=== PATIENT | male | born 1955 | race Caucasian/White ===

== ENCOUNTER → 2020-10-19 | Outpatient (CLI) | payer BC | END | disposition home or self-care (01) | LOC: LABWHC1 15:39 | PROVIDERS: ATTEND Urology | DX: R97.20 Elevated prostate specific antigen [PSA] (principal) | CPT/HCPCS: 36415; 84153 ==

== ENCOUNTER → 2020-11-14 | Outpatient (CLI) | payer BC ==
[2020-11-14 10:31] LABS: African American GFR (CKD) >90 (>60 ml/min/1.73 sqM); Blood Urea Nitrogen 14 mg/dL (9-20); Non-African American GFR(CKD) >90 (>60 ml/min/1.73 sqM)
--- NOTE | 2020-11-14 12:03 | CT ---
EXAMINATION TYPE: CT abdomen pelvis w con DATE OF EXAM: 11/14/2020 COMPARISON: None HISTORY: Prostate CA CT DLP: 1532.0 mGycm CONTRAST: CT scan of the abdomen and pelvis is performed with Oral Contrast and with IV Contrast, patient injec pawel with 100 mL of Isovue 300. FINDINGS: LUNG BASES-: No visible nodule. No infiltrate. LIVER/GB: No calcified gallstones. No space occupying hepatic lesion. Biliary tree is of normal ca liber. Mild hepatic steatosis. PANCREAS: No inflammation. No distinct mass. SPLEEN: No splenic enlargement. No lesion seen. ADRENALS: No nodule. No thickening. KIDNEYS/BLADDER: No hydronephrosis. No nephrolithiasis. Right renal cyst measures 3 cm. No solid re nal mass is detected. Urinary bladder grossly unremarkable. BOWEL: Normal appendix. Normal bowel caliber. No inflammation. GENITAL ORGANS: The prostate gland is enlarged. Periprosthetic fat planes are intact. LYMPH NODES: No greater than 1cm abdominal or pelvic lymph nodes are appreciated. AORTA: No significant abnormality. OSSEOUS STRUCTURES: No significant abnormality is seen. OTHER: No significant additional abnormality is seen. IMPRESSION: 1. Prostate gland enlargement. No CT evidence to suggest metastatic disease.
--- NOTE | 2020-11-14 15:09 | NM ---
EXAMINATION TYPE: NM bone scan whole body DATE OF EXAM: 11/14/2020 COMPARISON: NONE HISTORY: Prostate cancer Delayed whole-body scanning was performed following the injection of 23.6 mCi Tc 99m MDP. Images wer e acquired 3 hours post injection. FINDINGS: There is a punctate area of increased radiotracer accumulation within the left knee may be some degen erative change. Mild diffuse increase uptake is at joint spaces including bilateral levels bilateral wrists bilateral knees and bilateral ankles likely related to degenerative changes. No suspicious focal hyperintensities evident. No suspicious photopenic defects are evident. Note is m carrillo of Valentin rods within the upper thoracic region. IMPRESSION: 1. No suspicious changes to suggest metastatic prostate cancer.
== END | disposition home or self-care (01) ==
LOC: RADNMMAIN 09:22
PROVIDERS: ATTEND Urology
DX: N40.0 Benign prostatic hyperplasia without lower urinary tract symptoms (principal); C61 Malignant neoplasm of prostate
CPT/HCPCS: 82565; 84520; 74177; 36415; 78306; A9503; Q9967 ×2

== ENCOUNTER → 2020-12-19 | Outpatient (CLI) | payer BC ==
[2020-12-19 07:59] LABS: Basophils % (A) 0 %; Eosinophils # (A) 0.1 k/uL (0-0.7); Eosinophils % (A) 2 %; HCT 42.3 % (39.0-53.0); HGB 14.3 gm/dL (13.0-17.5); Lymphocytes # (A) 1.2 k/uL (1.0-4.8); Lymphocytes % (A) 28 %; MCH 30.4 pg (25.0-35.0); MCHC 33.9 g/dL (31.0-37.0); MCV 89.7 fL (80.0-100.0); Mean Platelet Volume 7.4; Monocytes # (A) 0.3 k/uL (0-1.0); Monocytes % (A) 7 %; Neutrophils # (A) 2.5 k/uL (1.3-7.7); Neutrophils % (A) 61 %; Platelet Count 178 k/uL (150-450); RBC 4.72 m/uL (4.30-5.90); RDW 13.1 % (11.5-15.5); WBC 4.1 k/uL (3.8-10.6)
[2020-12-19 08:28] LABS: African American GFR (CKD) >90 (>60 ml/min/1.73 sqM); Anion Gap 5 mmol/L; Blood Urea Nitrogen 13 mg/dL (9-20); Calcium 9.9 mg/dL (8.4-10.2); Carbon Dioxide 27 mmol/L (22-30); Chloride 108 mmol/L (98-107); Glucose 109 mg/dL (74-99); Non-African American GFR(CKD) >90 (>60 ml/min/1.73 sqM); Potassium 4.4 mmol/L (3.5-5.1); Sodium 140 mmol/L (137-145)
--- NOTE | 2020-12-19 09:59 | MR ---
EXAMINATION TYPE: MR Prostate wo/w con DATE OF EXAM: 12/19/2020 COMPARISON: CT abdomen and pelvis November 14, 2020 IMAGE QUALITY: . INDICATION: Prostate CA, Positive Biopsy, high PSA level PSA: 25.0 ng/ml on October 10, 2020 Recent Biopsy and Date: October 30, 2020 Pathology Report (If Applicable): Right base high-grade intraepithelial neoplasm. Left lateral base a denocarcinoma [place] score 4+3 = 7 103 core fragments 2 mm of core tissue 22% of tissue volume, left base adenocarcinoma Mansi score 4+4 = 8 1 mm core tissue 20% tissue volume. Lateral mid zone adeno carcinoma Mansi grade 4+4 = 8 5 mm core tissue 56% tissue volume, left mid adenocarcinoma [place]ome g rade 4+4 = 8 5 mm of core tissue 45% or volume. Lateral apex adenocarcinoma Mansi grade 4+4 = 8 1 m m core tissue 13% for volume TECHNIQUE: Examination was performed using a 3T MRI without an endorectal coil. Multiparametric imaging was perf ormed with T2 mutliplanar sequences, axial diffusion weighted imaging and dynamic contrast enhanced i maging, utilizing 10 mL intravenous Gadavist gadolinium contrast. FINDINGS: There is no clinically significant cancer identified. PROSTATE VOLUME: 4.8 cm SI x 4.7 cm AP x 5.8 cm LR Vol= 68.5 cc Calculated PSA equals 8.22 PSA DENSITY: 0.36 ng/ml/cc abnormal T1 weighted images show scattered areas of hyperintensity consistent with postbiopsy hemorrhage corre lating with history of recent sampling. Suspicious peripheral zone 3.5 x 2.3 x 2.0 cm lesion left mid level images through 12 through 228 ser ies 606 and coronal image 13 series 501 showing moderate hypointensity with mild hyperintensity on di ffusion-weighted images, there is posterior extraprostatic extension outside the capsule into the lef t perirectal space seen best on axial series 4 1 image 22 abutting the outer margin of the rectum. P IRADS 5 LESION. The transitional zone shows suspicious 1.3 cm hypointense nodule in the base just right of midline co mark image 8 corresponding to axial image 26 on T2-weighted images. PIRADS 2 LESION There are smaller suspicious T2 hypointense lesions in the lateral aspect of the base seen best on co mark image 10, right is more obscured margin measuring 1.4 cm long axis. Slight hypointensity and AD C mapping but no increased signal on diffusion-weighted images. PIRADS 3 LESION Bladder poorly distended with mild wall thickening present in part to poor distention. Seminal vesicl es appear within normal limits. There are suspicious adjacent pelvic lymph nodes. There especially when correlating with CT axial image 75 superior to level prostate gland suspicious bilateral subcentimeter adenopathy is present. Adjacent osseous structures are intact. No concerning pelvic fluid collection. No suspicious bowel di latation. IMPRESSION: Enlarged prostate gland with markedly suspicious inferior left peripheral zone appears ex tracapsular extension. Suspicious adenopathy identified superiorly seen better on recent CT in retros pect. A focus of clinically significant cancer is identified. Highest Assessment Category: 5 MRI Stage: T3a N1 M0 based on review of pelvic images. False negative rates for MRI range from 5-20% depending on risk profile. Assessment Categories: 1 ? Very low (clinically significant cancer is highly unlikely to be present) 2 ? Low (clinically significant cancer is unlikely to be present) 3 ? Intermediate (the presence of clinically significant cancer is equivocal) 4 ? High (clinically significant cancer is likely to be present) 5 ? Very high (clinically significant cancer is highly likely to be present)
== END | disposition home or self-care (01) ==
LOC: RADMRIMAIN 06:02
PROVIDERS: ATTEND Urology
DX: N40.0 Benign prostatic hyperplasia without lower urinary tract symptoms (principal); Z01.818 Encounter for other preprocedural examination; C61 Malignant neoplasm of prostate; R53.83 Other fatigue
CPT/HCPCS: 80048; 85025; 72197; 36415; A9585

== ENCOUNTER 2020-12-26 09:58 | Observation (INO) | payer BC ==
[2020-12-21 10:32] VITALS: BMI 30.9
[~2020-12-26 09:58] MED LIST: DEXAMETHASONE SOD PHOSPHATE 4 MG/ML 1 ML VIAL IV ONE; HEPARIN SODIUM,PORCINE/PF 5,000 UNIT/0.5 ML SYRINGE SQ PRN; HYDROmorphone 0.5 MG/0.5 ML SYRINGE IVP PRN; LIDOCAINE 1% (10MG/ML) FOR IV START INTRADERMA PRN; ONDANSETRON 4 MG/2 ML VIAL IVP ONE; SCOPOLAMINE 1.5MG/72HR PATCH TRANSDERM ONE
[2020-12-26] MEDS: LACTATED RINGERS 1,000 ML IV SCH ×2 (10:52→10:53)
[2020-12-26] MEDS ORDERED: MIDAZOLAM 2 MG/2 ML VIAL IV ONE (11:24)
[2020-12-26] MEDS ORDERED: NEOSTIGMINE 1 MG/ML 10 ML VIAL ONE (12:31)
[2020-12-26] MEDS ORDERED: KETAMINE 10 MG/ML 20 ML VIAL ONE (12:31)
[2020-12-26] MEDS ORDERED: HYDROmorphone (PF) 1 MG/ML ONE (12:31)
[2020-12-26] MEDS ORDERED: ROPIVACAINE 5 MG/ML 30 ML VIAL ONE (12:31)
[2020-12-26] MEDS ORDERED: ePHEDrine SULFATE/0.9% NACL/PF 50 MG/5 ML SYRINGE IV ONE (12:31)
[2020-12-26] MEDS ORDERED: ROCURONIUM 10 MG/ML (5 ML VIAL) IV ONE (12:31)
[2020-12-26] MEDS ORDERED: GLYCOPYRROLATE 0.2 MG/ML 2 ML VIAL ONE (12:31)
[2020-12-26] MEDS ORDERED: PROPOFOL 10 MG/ML 20 ML VIAL IV ONE (12:31)
[2020-12-26] MEDS ORDERED: KETOROLAC 15 MG/ML 1 ML VIAL ONE (12:31)
[2020-12-26] MEDS ORDERED: LIDOCAINE 1% INJ 10MG/ML (20 ML MDV) ONE (12:31)
[2020-12-26] MEDS ORDERED: ONDANSETRON 4 MG/2 ML VIAL ONE (12:31)
[2020-12-26] MEDS ORDERED: LIDOCAINE 1%-EPI 1:100,000 20 ML VIAL ONE (12:31)
[2020-12-26] MEDS ORDERED: SUCCINYLCHOLINE CHLORIDE VIAL 200 MG/10 ML VIAL IV ONE (12:31)
[2020-12-26] MEDS ORDERED: MIDAZOLAM 2 MG/2 ML VIAL ONE (12:31)
[2020-12-26] MEDS ORDERED: fentaNYL (PF) 50 MCG/ML 2 ML AMP ONE (12:31)
--- NOTE | 2020-12-26 12:35 | P.GSHP ---
History of Present Illness H&P Date: 12/25/20 Chief Complaint: Prostate Cancer The patient is a 65-year-old white male with recent PSA levels of 25.0 and 19.6. LESLIE reveals a left-sided prostate nodule. Ultrasound revealed a prostate volume of 53 mL, with a left-sided hypoechoic lesion. 5 of 12 biopsies showed Mansi 7/8 adenocarcinoma, all on the left side. CT scan and bone scan showed no metastases. Alternative treatment options were reviewed, and he has elected to undergo a robotic-assisted laparoscopic prostatectomy (RALP) with bilateral pelvic lymphadenectomy. An MRI was obtained, revealing a PIRADS 5 lesion on the left and PIRADS 2 and 3 lesions on the right. The MRI also suggests the presence of adenopathy (subcentimeter), also seen on the CT scan in retrospect. - Genitourinary (Male) Genitourinary: Reports nocturia Past Medical History Past Medical History: Cancer, Eye Disorder, Hypertension Additional Past Medical History / Comment(s): Current Prostate Cancer. Glaucoma. Hx kidney stones. History of Any Multi-Drug Resistant Organisms: None Reported Additional Past Surgical History / Comment(s): Varicose vein surgery, Parathyroid surgery, bilateral Cataract surgery with lens implants. Past Anesthesia/Blood Transfusion Reactions: No Reported Reaction Past Psychological History: No Psychological Hx Reported Smoking Status: Never smoker Past Alcohol Use History: None Reported Past Drug Use History: None Reported - Past Family History Mother Family Medical History: Cancer Additional Family Medical History / Comment(s): Melanoma. Medications and Allergies Home Medications Medication Instructions Recorded Confirmed Type lisinopriL 20 mg PO QAM 12/21/20 12/26/20 History Allergies Allergy/AdvReac Type Severity Reaction Status Date / Time No Known Allergies Allergy Verified 12/26/20 10:24 Surgical - Exam - General well developed, well nourished, no distress - Respiratory normal respiratory effort, clear to auscultation - Cardiovascular Rhythm: regular Abnormal Heart Sounds: no systolic murmur, no diastolic murmur, no rub, no S3 Gallop, no S4 Gallop, no click, no other - Abdomen Abdomen: soft, non tender, no guarding, no rigid, no rebound Hernia: none - Genitourinary normal penis with no external lesions, testicles non-tender - Psychiatric oriented to time, oriented to person, oriented to place, speech is normal, memory intact Results - Imaging CT scan - pelvis: report reviewed, image reviewed Assessment and Plan (1) Malignant neoplasm of prostate Current Visit: No Status: Acute Code(s): C61 - MALIGNANT NEOPLASM OF PROSTATE SNOMED Code(s): 376985105 Plan: Robotic-assisted laparoscopic prostatectomy (RALP) with bilateral pelvic lymphadenectomy. The procedure has been reviewed in detail with the patient and his . The anticipated perioperative course was discussed. Also discussed were potential risks, which include anesthesia, bleeding, infection, bowel injury, lymphocele, urinary leak, and vesical neck contracture. The issues of postoperative urinary incontinence and erectile dysfunction have been discussed with the patient in great detail. If bulky positive lymph nodes are encountered, consideration would be given to aborting the planned prostatectomy.
[2020-12-26] MEDS ORDERED: BUPIVACAINE (PF) 0.25% 30 ML VIAL SQ ONE ×2 (13:00)
[2020-12-26] MEDS ORDERED: LACTATED RINGERS 1,000 ML IV ONE (14:33)
[2020-12-26] MEDS ORDERED: KETOROLAC 15 MG/ML 1 ML VIAL IVP PRN (17:54)
[2020-12-26] MEDS ORDERED: ONDANSETRON 4 MG/2 ML VIAL IVP PRN (17:54)
--- NOTE | 2020-12-26 18:02 | P.OP ---
Date of Procedure: 12/26/20 Preoperative Diagnosis: Adenocarcinoma the prostate Postoperative Diagnosis: Same Procedure(s) Performed: Robotic-assisted laparoscopic prostatectomy (RALP) with bilateral pelvic lymphadenectomy Anesthesia: ANNA Surgeon: Nadir Geller Schedule Planning Manager #1: Taras Fountain Estimated Blood Loss (ml): 250 IV fluids (ml): 1,800 Pathology: other (Prostate, seminal vesicles, bilateral pelvic lymph nodes) Condition: stable Disposition: PACU Indications for Procedure: The patient is a 65-year-old white male with recent PSA levels of 25.0 and 19.6. LESLIE reveals a left-sided prostate nodule. Ultrasound revealed a prostate volume of 53 mL, with a left-sided hypoechoic lesion. 5 of 12 biopsies showed [place] 7/8 adenocarcinoma, all on the left side. CT scan and bone scan showed no metastases. Alternative treatment options were reviewed, and he has elected to undergo a robotic-assisted laparoscopic prostatectomy (RALP) with bilateral pelvic lymphadenectomy. An MRI was obtained, revealing a PIRADS 5 lesion on the left and PIRADS 2 and 3 lesions on the right. The MRI also suggests the presence of adenopathy (subcentimeter), also seen on the CT scan in retrospect. Operative Findings: Nodular left lateral prostatic lobe. Description of Procedure: The patient was taken in the operating room and placed in the dorsal lithotomy position, with his legs supported in Thanh stirrups. He was carefully positioned on a beanbag for stability. The abdomen and external genitalia were prepped and draped sterilely. A Spaulding catheter was inserted. The Veress needle was passed through the anterior abdominal wall immediately cephalad to the umbilicus, and insufflation was performed to a pressure of 20 mm Hg. Once insufflation was performed, the Veress needle was removed and a supraumbilical incision was made, through which a 12 mm camera port was placed. Under camera guidance, 3 8 mm robotic ports were placed, 2 on the left and one on the right. An additional 12 mm port was placed on the right lateral side for use as an media center assistant port. A 5 mm port was placed to the right of the camera port for suction. The patient was placed in Trendelenburg position, and docking was then performed to the britebill system utilizing a 4-arm approach. The abdomen was examined. The sigmoid colon was mobilized out of the pelvis. The peritoneum was incised lateral to the medial umbilical ligaments bilaterally, exposing the pubis. The peritoneum was then incised across the midline, allowing the bladder flap to be taken down. The endopelvic fascia was opened bilaterally, and muscular attachments from the urogenital diaphragm were swept away from the prostate. Bilateral pelvic lymphadenectomies were performed in the standard fashion. The peritoneal incisions were extended in a cephalad direction, and the vas deferens were divided bilaterally. Margins of dissection were the bifurcation of the iliac vessels proximally, the circumflex iliac vein distally, the external iliac artery laterally, and the obturator nerve medially. A standard lymphadenectomy was performed on the right side, but an extended lymphadenectomy was performed on the left side. A combination of sharp and blunt dissection was used. Care was taken to avoid any neurovascular injury, and the use of monopolar electrocautery was avoided immediately adjacent to neurovascular structures. The lymphatic package was clipped distally. No enlarged lymph nodes were encountered. There were no complications. The vesical neck was incised transversely, down to the lumen. The Spaulding catheter was brought out through the anterior vesical neck incision and was used for traction. The posterior aspect of the vesical neck was incised, such that the full-thickness of the vesical neck was divided. The anterior layer of the Denonvilliers fascia was incised, exposing the vas deferens. Each were isolated and divided. Next, each of the seminal vesicles were dissected away from adjacent tissues, and vascular attachments were cauterized and divided. The posterior leaf of Denonvilliers fascia was incised transversely, allowing entry into the plane between the prostate and rectum. With lateral spreading, this plane was developed down to the apex. This exposed the lateral vascular pedicles bilaterally. These were clipped and divided in an antegrade fashion, down to the apex. The use of electrocautery was avoided on the right to prevent thermal damage to the nerves. The plane of dissection on the right allowed for partial nerve sparing. Wide excision of the neurovascular bundle was performed on the left. The left prostatic lobe was nodular, but was not adherent to any adjacent structures. The remaining apical attachments were swept away from the prostate. The dorsal venous complex was incised, as well as periurethral tissue. At this point, only the urethra remained intact. This was transected immediately distal to the prostatic apex using cold scissors. The specimen was placed within a specimen bag. The dorsal venous complex was sutured using a V-Loc suture in a running fashion. A second V-Loc suture was then used to place the Eduardo stitch, incorporating the rhabdosphincter and the edge of Denonvilliers fascia. This allowed the bladder to be taken down to the urethra, leaving the vesical neck immediately adjacent to the urethra. The vesicourethral anastomosis was then performed using a V-Loc suture in a running fashion. After completing the anastomosis, an 18-Ukrainian Spaulding catheter was placed and approximately 150 mL of 0.9 normal saline were instilled into the bladder. No extravasation of irrigant from the vesicourethral anastomosis was noted. A small amount of oozing was noted from the vascular pedicles, so Surgicel was placed bilaterally. Tisseel was sprayed into the pelvis over the vascular pedicles, dorsal vein, and vesicourethral anastomosis. The patient was returned to the supine position. Undocking was performed, and the specimen bag sutures were passed through the camera port. After removing all the ports and allowing all of the CO2 to be released from the peritoneal cavity, the camera port incision was enlarged to allow removal of the surgical specimen. The fascia of this incision was then closed using 0-PDS suture in a running fashion. Each of the skin incisions were then closed using 4-0 Monocryl suture in a subcuticular fashion. Marcaine was injected at each of the incision sites. Dermabond was applied to each incision. The Spaulding catheter was connected to gravity drainage. All sponge and needle counts were correct. The patient tolerated the procedure well was taken to the recovery room in stable condition.
[2020-12-26] MEDS: DEXTROSE 5%-0.45% NACL 1,000 ML IV SCH (19:47)
[2020-12-26] MEDS: HEPARIN SODIUM,PORCINE/PF 5,000 UNIT/0.5 ML SYRINGE SQ SCH (21:15)
[2020-12-27] MEDS: DEXTROSE 5%-0.45% NACL 1,000 ML IV SCH ×2 (02:51→10:29)
[2020-12-27] MEDS: HYDROmorphone 1 MG/ML 1 ML SYRINGE IVP PRN ×2 (05:51→08:03)
[2020-12-27 06:22] VITALS: RESP 18
[2020-12-27 06:36] LABS: HCT 38.2 % (39.0-53.0); HGB 13.3 gm/dL (13.0-17.5); MCHC 34.7 g/dL (31.0-37.0); MCV 89.4 fL (80.0-100.0); Mean Platelet Volume 7.3; Platelet Count 167 k/uL (150-450); RBC 4.27 m/uL (4.30-5.90); RDW 12.9 % (11.5-15.5); WBC 8.4 k/uL (3.8-10.6)
[2020-12-27] MEDS: HEPARIN SODIUM,PORCINE/PF 5,000 UNIT/0.5 ML SYRINGE SQ SCH (08:03)
[2020-12-27] MEDS ORDERED: HYDROcodone/APAP 5-325MG 1 EACH TAB PO PRN ×2 (10:46)
[2020-12-27 12:22] VITALS: BP 146/86; PULSE 58; TEMP 98.1
--- NOTE | 2020-12-27 12:43 | P.DS ---
Providers Date of admission: 12/27/20 11:03 Expected date of discharge: 12/27/20 Attending physician: Nadir Geller Primary care physician: Cheryle Owusu - Discharge Diagnosis(es) (1) Malignant neoplasm of prostate Current Visit: No Status: Acute Hospital Course: Patient is a 65-year-old white male who underwent an uncomplicated RALP on the day of admission. The perioperative course was unremarkable. He remained afebrile with stable vital signs. On the first postoperative day, he denied nausea and reported only incisional discomfort. He tolerated breakfast in small amounts. The abdomen was soft and nondistended. The incisions were clean and dry. The Spaulding catheter was draining clear yellow urine. The hemoglobin level is stable. Procedures: Robotic-assisted laparoscopic prostatectomy (RALP) with bilateral pelvic lymphadenectomy on 12/26/2020. Patient Condition at Discharge: Good Plan - Discharge Summary Discharge Rx Participant: No New Discharge Prescriptions: New Ketorolac [Toradol] 10 mg PO Q6HR PRN #12 tab PRN Reason: Pain Ciprofloxacin HCl [Cipro] 250 mg PO Q12HR #6 tablet HYDROcodone/APAP 5-325MG [[place] 5-325] 1 - 2 tab PO Q4HR PRN #6 tab PRN Reason: Pain No Action lisinopriL 20 mg PO QAM Discharge Medication List lisinopriL 20 mg PO QAM 12/21/20 [History] Ciprofloxacin HCl [Cipro] 250 mg PO Q12HR #6 tablet 12/27/20 [Rx] HYDROcodone/APAP 5-325MG [[place] 5-325] 1 - 2 tab PO Q4HR PRN #6 tab 12/27/20 [Rx] Ketorolac [Toradol] 10 mg PO Q6HR PRN #12 tab 12/27/20 [Rx] Follow up Appointment(s)/Referral(s): Nadir Geller MD [STAFF PHYSICIAN] - 01/04/21 Activity/Diet/Wound Care/Special Instructions: Discharge home with Spaulding catheter. Instruct patient to use overnight drainage bag as well as urinary leg bag. Okay to shower. Diet as tolerated. No lifting, driving, or strenuous activity. Reassure patient that abdominal wall ecchymosis and penoscrotal swelling are normal. Instruct patient to begin taking antibiotics one day prior to Spaulding catheter removal. Discharge Disposition: HOME SELF-CARE
--- NOTE | 2020-12-27 18:33 | P.ANPRN ---
Procedure Note - Anesthesia - Nerve Block Performed Bilateral Erector Spinae Single Time Out Performed: Yes Date of Procedure: 12/26/20 Procedure Start Time: :23 Procedure Stop Time: :34 Location of Patient: PreOp Indication: Acute Post-Operative Pain, Requested by Surgeon Sedation Type: Sedate with meaningful contact maintained Preparation: Sterile Prep Position: Prone Needle Types: Pajunk Needle Gauge: 21 Ultrasound used to visualize needle placement: Yes Ultrasound used to observe medication spread: Yes Blood Aspirated: No Pain Paresthesia on Injection Noted: No Resistance on Injection: Normal Image Stored and Saved: Yes Events: Uneventful and Well Tolerated (ropi .5% 15cc plus xylo 1% with epi 15cc at l3 bilaterally)
== END 2020-12-27 15:10 | disposition home or self-care (01) ==
LOC: OR 09:58 → 5NMEDONC 18:01 → OR 12-27 11:03
PROVIDERS: ADMIT Urology; ATTEND Urology
DX: C61 Malignant neoplasm of prostate (principal); R35.1 Nocturia; I10 Essential (primary) hypertension; G47.33 Obstructive sleep apnea (adult) (pediatric); E07.9 Disorder of thyroid, unspecified; H40.9 Unspecified glaucoma; Z79.899 Other long term (current) drug therapy; Z20.822 Contact with and (suspected) exposure to COVID-19; Z98.41 Cataract extraction status, right eye; Z96.1 Presence of intraocular lens; Z98.42 Cataract extraction status, left eye; Z87.442 Personal history of urinary calculi; Z80.8 Family history of malignant neoplasm of other organs or systems
CPT/HCPCS: 64999; 76942; 86900; 86901; 85027; 86850; 87635; 55866; 38571; G0378; C1762; J2250; J1100; J0690; J2405 ×2; J1170; J1885; J1644 ×2

== ENCOUNTER → 2021-01-28 | Outpatient (CLI) | payer BC | END | disposition home or self-care (01) | LOC: LABWHC1 16:16 | PROVIDERS: ATTEND Urology | DX: C61 Malignant neoplasm of prostate (principal) | CPT/HCPCS: 36415; 84153 ==

== ENCOUNTER → 2021-03-19 | Outpatient (CLI) | payer BC ==
[2021-03-19 10:36] LABS: African American GFR (CKD) >90 (>60 ml/min/1.73 sqM); Blood Urea Nitrogen 15 mg/dL (9-20); Non-African American GFR(CKD) >90 (>60 ml/min/1.73 sqM)
--- NOTE | 2021-03-19 13:59 | CT ---
EXAMINATION TYPE: CT pelvis w con DATE OF EXAM: 03/19/2021 COMPARISON: 11/14/2020, PET/CT report dated 03/05/2021 HISTORY: Prostate cancer TECHNIQUE: Pelvis is examined at 5 mm thick sections. Constructed images the coronal and sagittal priscilla ne reviewed. This exam is compared to 11/14/2020. Study is performed without intravenous and oral cont rast. FINDINGS: Couple of punctate sclerotic areas are within the femoral heads most likely are bone island s. No acute fractures are evident. Sacroiliac joint degenerative changes and vacuum phenomenon is pre sent. Facet changes are within the L5-S1 level. No suspicious lytic or sclerotic lesions are evident. There is a cyst in the mid posterior right kidney measuring 3.0 cm and 9 Hounsfield units. Kidneys ot herwise appear unremarkable. Vascular calcifications within the abdominal aorta. Inferior vena cava i s normal. Loops of bowel without oral contrast are unremarkable. Diverticular changes are within the sigmoid colon. Urinary bladder is decompressed. There may be interval resection of the prostate. Prev ious enlarged prostate is not identified. No suspicious adenopathy is identified at the location described in the PET CT report. No suspicious lymph node at the aortic bifurcation or left iliac chain is identified by CT criteria. IMPRESSION: 1. Findings compatible with prior prostatectomy. 3. No suspicious change to suggest metastatic disease. No suspicious adenopathy or bone lesions are e vident.
== END | disposition home or self-care (01) ==
LOC: RADCTMAIN 09:36
PROVIDERS: ATTEND Urology
DX: C61 Malignant neoplasm of prostate (principal)
CPT/HCPCS: 82565; 84520; 72193; 36415; Q9967

== ENCOUNTER 2021-04-16 10:41 | Day surgery (SDC) | payer BC ==
[2021-04-11 11:51] VITALS: BMI 29.8
[2021-04-16] MEDS ORDERED: LACTATED RINGERS 1,000 ML IV ONE (11:02)
[2021-04-16 11:16] VITALS: RESP 18; TEMP 97.8
[2021-04-16] MEDS ORDERED: LIDOCAINE 1% INJ 10MG/ML (20 ML MDV) ONE (11:50)
[2021-04-16] MEDS ORDERED: PROPOFOL 10 MG/ML 20 ML VIAL IV ONE (11:50)
--- NOTE | 2021-04-16 11:55 | P.GSHP ---
History of Present Illness H&P Date: 04/16/21 Chief Complaint: Colon cancer screening 66-year-old male here today for colonoscopy. Last colonoscopy 3-5 years ago. Personal history of colon polyps. No bowel complaints. Recent diagnosis of prostate cancer. Past Medical History Past Medical History: Cancer, Eye Disorder, Hypertension Additional Past Medical History / Comment(s): Current Prostate Cancer. Glaucoma. Hx kidney stones, hx. colon polyp, urinary incontinence related to recent prostate surg. History of Any Multi-Drug Resistant Organisms: None Reported Past Surgical History: Back Surgery, Orthopedic Surgery, Prostate Surgery Additional Past Surgical History / Comment(s): Varicose vein surgery, Parathyroid surgery, bilateral Cataract surgery with lens implants. carpal tunnel surgery B/L; arthroscopies knees, robotic prostatectomy & lymph nodes removed 12-26-20 Past Anesthesia/Blood Transfusion Reactions: No Reported Reaction Smoking Status: Never smoker - Past Family History Mother Family Medical History: Cancer Additional Family Medical History / Comment(s): Melanoma. Medications and Allergies Home Medications Medication Instructions Recorded Confirmed Type lisinopriL 20 mg PO QAM 12/21/20 04/11/21 History Allergies Allergy/AdvReac Type Severity Reaction Status Date / Time No Known Allergies Allergy Verified 04/11/21 11:54 Surgical - Exam Vital Signs Temp Pulse Resp BP Pulse Ox 97.8 F 78 18 161/88 97 04/16/21 11:01 04/16/21 11:01 04/16/21 11:01 04/16/21 11:01 04/16/21 11:01 Physical exam: General: Well-developed, well-nourished HEENT: Normocephalic, sclerae nonicteric Abdomen: Nontender, nondistended Extremities: No edema Neuro: Alert and oriented Assessment and Plan (1) Colon cancer screening Narrative/Plan: Will proceed with colonoscopy at this time Current Visit: Yes Status: Acute Code(s): Z12.11 - ENCOUNTER FOR SCREENING FOR MALIGNANT NEOPLASM OF COLON SNOMED Code(s): 083120459
--- NOTE | 2021-04-16 12:09 | P.PCN ---
Date of Procedure: 04/16/21 Procedure(s) Performed: PREOPERATIVE DIAGNOSIS: Colon cancer screening, history of polyps POSTOPERATIVE DIAGNOSIS: Diverticulosis PROCEDURE: Colonoscopy ANESTHESIA: MAC SURGEON: Alli Owusu M.D. SPECIMENS: None ENDOSCOPIC PROCEDURE: The patient was placed on the endoscopy table in the left decubitus position. The Olympus colonoscope was inserted into the anus and passed under direct visualization to the base of the cecum. The appendiceal orifice was visualized. From that point the scope was slowly withdrawn inspecting all surfaces carefully. There were no neoplastic inflammatory or polypoid lesions throughout the cecum, ascending, transverse, descending, sigmoid and rectum. There was mild left-sided diverticulosis noted. Digital rectal examination was normal. The patient was taken to the recovery room in stable condition per anesthesia guidelines. RECOMMENDATIONS: Resume diet. Follow-up colonoscopy 5-10 years.
[2021-04-16 12:36] VITALS: BP 117/73; PULSE 51
== END 2021-04-16 13:05 | disposition home or self-care (01) ==
LOC: ORWHC2ENDO 10:41
PROVIDERS: ATTEND Surgery
DX: Z12.11 Encounter for screening for malignant neoplasm of colon (principal); Z86.010 Personal history of colon polyps; I10 Essential (primary) hypertension; H40.9 Unspecified glaucoma; Z85.46 Personal history of malignant neoplasm of prostate; Z87.442 Personal history of urinary calculi; Z90.79 Acquired absence of other genital organ(s); Z87.19 Personal history of other diseases of the digestive system
CPT/HCPCS: 45378; J2001; J2704

== ENCOUNTER → 2021-04-16 | Outpatient (CLI) | payer BC ==
[2021-04-16 16:13] LABS: Basophils % (A) 0 %; Eosinophils # (A) 0.1 k/uL (0-0.7); Eosinophils % (A) 2 %; HCT 43.9 % (39.0-53.0); HGB 14.9 gm/dL (13.0-17.5); Lymphocytes # (A) 1.3 k/uL (1.0-4.8); Lymphocytes % (A) 33 %; MCH 31.5 pg (25.0-35.0); MCHC 33.9 g/dL (31.0-37.0); MCV 93.1 fL (80.0-100.0); Mean Platelet Volume 8.1; Monocytes # (A) 0.2 k/uL (0-1.0); Monocytes % (A) 6 %; Neutrophils # (A) 2.3 k/uL (1.3-7.7); Neutrophils % (A) 58 %; Platelet Count 173 k/uL (150-450); Poikilocytosis Slight; RBC 4.72 m/uL (4.30-5.90); RDW 14.3 % (11.5-15.5)
[2021-04-16 16:22] LABS: ALT 21 U/L (4-49); AST 23 U/L (17-59); African American GFR (CKD) >90 (>60 ml/min/1.73 sqM); Albumin 4.2 g/dL (3.5-5.0); Alkaline Phosphatase 72 U/L (38-126); Anion Gap 7 mmol/L; Blood Urea Nitrogen 10 mg/dL (9-20); Calcium 10.2 mg/dL (8.4-10.2); Carbon Dioxide 26 mmol/L (22-30); Chloride 108 mmol/L (98-107); Glucose 116 mg/dL (74-99); Non-African American GFR(CKD) >90 (>60 ml/min/1.73 sqM); Sodium 141 mmol/L (137-145); Total Bilirubin 0.9 mg/dL (0.2-1.3); Total Protein 6.6 g/dL (6.3-8.2)
--- NOTE | 2021-04-17 07:21 | XR ---
EXAMINATION TYPE: XR chest 2V DATE OF EXAM: 04/16/2021 COMPARISON: NONE HISTORY: Shortness of breath TECHNIQUE: Frontal and lateral views of the chest are obtained. FINDINGS: Scattered senescent parenchymal changes noted. No evidence for infiltrate. No evidence for atelectasis. Heart size is stable. Mediastinal structures are stable and grossly unremarkable. No evidence for hilar prominence. Degenerative changes dorsal spine. Valentin rods are in place. IMPRESSION: 1. No evidence for acute pulmonary disease.
== END | disposition home or self-care (01) ==
LOC: LABPAT 15:41
PROVIDERS: ATTEND Urology
DX: Z01.812 Encounter for preprocedural laboratory examination (principal); C61 Malignant neoplasm of prostate
CPT/HCPCS: 36415; 71046; 80053; 85025

== ENCOUNTER → 2021-04-19 | Outpatient (CLI) | payer BC | END | disposition home or self-care (01) | LOC: LABPAT 15:36 | PROVIDERS: ATTEND Urology | DX: Z53.9 Procedure and treatment not carried out, unspecified reason (principal) ==

== ENCOUNTER 2021-04-23 10:33 | Inpatient (IN) | payer BC ==
[2021-04-17 11:19] VITALS: BMI 29.5
--- NOTE | 2021-04-22 15:37 | P.GSHP ---
History of Present Illness H&P Date: 04/22/21 66 yo male known to our office for prostate cancer. He was diagnosed 10/2020 p being referred for an elevated psa at . The patient underwent trus with biopsies that identified 5/ biopsies positive for a G8 cancer . This was in the left side at the base in a [address] Geller did a ralp after a negatve metastatic evaluation. The ralp pathology identified G 4+3 T3A N0M0 adenocarcinoma. He had bilateral plnd at the same time with negative nodes. His post op psa didnt drop at [phone] Most recently it was 21.9. He underwent a axumin PET CT identifying maddy disease in the sacral promintory. It was discussed at length about treatment options including radiation therapy vs a m ore extensive plnd up into the retroperitneum vs lhrh therapy. This risks of each have been discussed. He comes for an open bilateral rplnd below the DAMIAN into the pelvis. - Genitourinary (Female) Genitourinary: Reports stress incontinence Past Medical History Past Medical History: Cancer, Eye Disorder, Hypertension Additional Past Medical History / Comment(s): Current Prostate Cancer. Glaucoma. Hx kidney stones, hx. colon polyp, urinary incontinence related to recent prostate surg. History of Any Multi-Drug Resistant Organisms: None Reported Past Surgical History: Back Surgery, Orthopedic Surgery, Prostate Surgery Additional Past Surgical History / Comment(s): Varicose vein surgery, Parathyroid surgery, bilateral Cataract surgery with lens implants. carpal tunnel surgery B/L; arthroscopies knees, robotic prostatectomy & lymph nodes removed 12-26-20 Past Anesthesia/Blood Transfusion Reactions: No Reported Reaction Smoking Status: Never smoker - Past Family History Mother Family Medical History: Cancer Additional Family Medical History / Comment(s): Melanoma. Medications and Allergies Home Medications Medication Instructions Recorded Confirmed Type lisinopriL 20 mg PO QAM 12/21/20 04/17/21 History Allergies Allergy/AdvReac Type Severity Reaction Status Date / Time No Known Allergies Allergy Verified 04/17/21 11:18 Surgical - Exam - General well developed, well nourished - Eyes PERRL - ENT no hearing loss - Neck trachea midline - Respiratory normal expansion, normal respiratory effort - Cardiovascular Rhythm: regular - Abdomen Abdomen: soft, non tender - Genitourinary normal penis with no external lesions, testicles present - Neurologic normal coordination - Musculoskeletal normal posture - Psychiatric oriented to time, oriented to person, oriented to place, speech is normal, memory intact Results - Imaging CT scan - pelvis: report reviewed, image reviewed Assessment and Plan Assessment: Impression: Persistent prostate cancer in sacral lymph node perhaps more Plan: retroperitoneal and pelvic lymph node dissection
[~2021-04-23 10:33] MED LIST changes: -HEPARIN SODIUM,PORCINE/PF 5,000 UNIT/0.5 ML SYRINGE SQ PRN; -LIDOCAINE 1% (10MG/ML) FOR IV START INTRADERMA PRN; +MIDAZOLAM 2 MG/2 ML VIAL IV PRN; -SCOPOLAMINE 1.5MG/72HR PATCH TRANSDERM ONE
[2021-04-23] MEDS: LACTATED RINGERS 1,000 ML IV SCH (11:07)
[2021-04-23] MEDS ORDERED: MIDAZOLAM 2 MG/2 ML VIAL IVP ONE (12:11)
[2021-04-23] MEDS ORDERED: fentaNYL (PF) 50 MCG/ML 2 ML AMP ONE (12:25)
[2021-04-23] MEDS ORDERED: NEOSTIGMINE 1 MG/ML 10 ML VIAL ONE (12:25)
[2021-04-23] MEDS ORDERED: PROPOFOL 10 MG/ML 20 ML VIAL IV ONE (12:25)
[2021-04-23] MEDS ORDERED: LIDOCAINE 1% INJ 10MG/ML (20 ML MDV) ONE (12:25)
[2021-04-23] MEDS ORDERED: GLYCOPYRROLATE 0.2 MG/ML 2 ML VIAL ONE (12:25)
[2021-04-23] MEDS ORDERED: SUCCINYLCHOLINE CHLORIDE 100 MG/5 ML SYR IV ONE (12:25)
[2021-04-23] MEDS ORDERED: ROCURONIUM 10 MG/ML (5 ML VIAL) IV ONE (12:25)
[2021-04-23] MEDS ORDERED: MIDAZOLAM 2 MG/2 ML VIAL ONE (12:25)
[2021-04-23] MEDS ORDERED: NALOXONE 0.4 MG/ML 1 ML VIAL IV PRN (13:19)
--- NOTE | 2021-04-23 13:26 | P.ANPRN ---
Procedure Note - Anesthesia - Epidural/Spinal Epidural Date of Procedure: 04/23/21 Procedure Start Time: 12:10 Procedure Stop Time: 12:23 Location of Patient: PreOp Indication: Acute Post-Operative Pain, Requested by Surgeon (Requested by Dr. Jalloh) Sedation Type: Sedate with meaningful contact maintained Preparation: Sterile Dressing Position: Sitting Needle Guage: 18 Injectate: Test Dose Lidocaine1.5% w/1:200,000 epi (negative) Blood Aspirated: No Pain Paresthesia on Injection Noted: No Events: Uneventful and Well Tolerated
[2021-04-23] MEDS ORDERED: LACTATED RINGERS 1,000 ML IV ONE ×3 (14:00→16:39)
[2021-04-23] MEDS ORDERED: KETOROLAC 15 MG/ML 1 ML VIAL IVP PRN (15:15)
--- NOTE | 2021-04-23 15:24 | P.OP ---
Date of Procedure: 04/23/21 Preoperative Diagnosis: Prostate cancer Postoperative Diagnosis: Same Procedure(s) Performed: Retroperitoneal, pelvic lymph node dissection Anesthesia: GETA, epidural Surgeon: Deonte Jalloh Copy Worker #1: Nadir Geller Estimated Blood Loss (ml): 200 Pathology: other (Retroperitoneal and pelvic lymph nodes) Condition: stable Disposition: PACU Indications for Procedure: The patient is 66. He had a high-grade prostate cancer, Fenton 8 identified in the spring. Metastatic evaluation was negative. He underwent a robotic-assisted laparoscopic prostatectomy. The margin showed minimal invasion. The lymphadenectomy was negative. His PSA however did not drop. It remained 21. He eventually underwent an Acumin and PET/CT scan that identified to probable areas of persistent cancer in the pelvis. It appeared to be in the presacral region as well as in the left leg system. Treatment options were discussed at length with the patient. Decided to do an extended retroperitoneal/pelvic lymph node dissection. Description of Procedure: Patient is brought to the operating suite. He is given epidural followed by general endotracheal anesthesia. Spaulding catheters introduced sterilely. An incision from above the umbilicus down towards the pubis was made. The peritoneum was opened. It is no notable adhesion on the anterior abdominal wall. With Bookwalter retraction we exposed the retroperitoneum. We incised the mesentery and lift the small bowel off the aorta and vena cava up to about the inferior mesenteric artery. We identify the right ureter and place a vessel loop around it. We come across the vena cava and aorta using hemoclips superiorly. We lift the retroperitoneal tissue off the aorta and the vena cava. We dissect lateral to the vena cava all the way down to the common iliac vein lifting tissue off the vena cava area the margins are the inferior iliac artery the vena cava the psoas muscle and the ureter laterally. This is sent as paracaval lymph nodes. We then March inferiorly along the common iliac artery and vein down to the bifurcation. We do this on the right and left side. Palpably identify some abnormal lymph maddy tissue over the sacrum. We tediously dissected the tissue the body wall, the left common iliac artery. We also square the tissue off the internal iliac artery this was a tedious dissection. Takes almost an hour to remove this obvious cancerous tissue. This is sinus sacral lymph nodes. Then March down the common iliac vein and artery to the external iliac vein and artery. Between the vein and artery were identify some lymph node tissue and dissected out of its compartment and we make sure not to injure the obturator nerve. The left ureter is lateral to this. There is obvious tumor in this region that we tediously dissected off the body wall the external iliac vein and artery and delivered from the wound again using hemoclips and electrocautery. We inspect the rest of the tissue and do not see any other obvious lymph maddy tissue. We irrigate thoroughly with sterile water. We followed bowel to fall back in the abdomen. The abdominal fascia is closed with a double-stranded 0 PDS. The skin is stapled. The patient awake and returned recovery in good condition. Blood loss is approximately 200 mL. Pending the pathology report and his PSA as to final recommendations. The patient's placed in the hospital postoperatively. His condition is good.
[2021-04-23] MEDS ORDERED: LIDOCAINE 1% INJ 10MG/ML (20 ML MDV) IV ONE (16:20)
[2021-04-24] MEDS: DEXTROSE 5%-0.45% NACL 1,000 ML IV SCH ×5 (02:09→19:37)
--- NOTE | 2021-04-24 07:30 | P.PN ---
Progress Note - Text Progress Note Date: 04/24/21 Postoperative day # 1 ,status post retroperitoneal lymph node dissection ,epidural catheter placed for postoperative analgesia, patient doing well epidural site okay, patient currently on combination of epidural infusion solution of Ropivacaine 0.0625% and Dilaudid 20 g per mL the infusion rate at 10 ml per hour , patient had no motor deficit epidural site okay , vital signs stable ,VAS 0-1/10 , Assessment and plan= post operative day # 1 patient doing well ,pain well controlled , there is no anesthesia related complications
[2021-04-24] MEDS ORDERED: diphenhydrAMINE 25 MG CAP PO PRN (09:01)
--- NOTE | 2021-04-24 09:03 | P.PN ---
Subjective Progress Note Date: 04/24/21 Principal diagnosis: POD #1, s/p retroperitoneal and pelvic lymph node dissection The patient feels very well this morning. He is essentially pain-free. He has not passed flatus. He has drank a lot of water and tolerated clear liquid diet. He has not ambulated but denies paresthesia. Objective - Vital Signs Vital signs: Vital Signs Temp 97.7 F 04/24/21 02:00 Pulse 54 L 04/24/21 02:00 Resp 17 04/24/21 02:00 BP 110/64 04/24/21 02:00 Pulse Ox 97 04/24/21 02:00 Intake & Output 04/23/21 04/23/21 04/24/21 06:59 18:59 06:59 Intake Total 3050 300 Output Total 650 1100 Balance 2400 -800 Weight 96.9 kg Intake: IV 3050 Oral 300 Output: Urine 450 1100 Estimated Blood Loss 200 Other: Voiding Method Indwelling Catheter - Constitutional General appearance: Present: average body habitus, cooperative, no acute distress - Gastrointestinal Gastrointestinal Comment(s): Soft, non-distended. Dressing intact with minimal sanguinous drainage. Assessment and Plan (1) Malignant neoplasm of prostate Current Visit: Yes Status: Acute Code(s): C61 - MALIGNANT NEOPLASM OF PROSTATE SNOMED Code(s): 446536010 Plan: The need for ambulation was stressed. Clear liquid diet will be continued at this time. The epidural will remain in place for another 24-48 hours.
[2021-04-24] MEDS: lisinopriL 20 MG TAB PO SCH (09:05)
[2021-04-24] MEDS: LACTATED RINGERS 1,000 ML IV SCH (09:05)
[2021-04-24] MEDS: ROPIVACAINE 250 MG, HYDROMORPHONE (PF) 5 MG in SODIUM CHLORIDE 0.9% 200 ML EPIDURAL PRN ×2 (11:23→13:01)
[2021-04-24] MEDS: ONDANSETRON 4 MG/2 ML VIAL IVP PRN (19:37)
[2021-04-25] MEDS: ONDANSETRON 4 MG/2 ML VIAL IVP PRN ×4 (02:17→20:08)
--- NOTE | 2021-04-25 06:24 | P.PN ---
Progress Note - Text Progress Note Date: 04/25/21 Postoperative day # 2 ,status post retroperitoneal lymph node dissection ,epidural catheter placed for postoperative analgesia day #3. patient doing well epidural site okay, patient currently on combination of epidural infusion solution of Ropivacaine 0.0625% and Dilaudid 20 g per mL the infusion rate at 3ml per hour , patient had no motor deficit epidural site okay , vital signs stable ,VAS 0-1/10. Plan: Continue epidural at current settings. Patient is not on any anticoagul ation, patient has Spaulding catheter site please discuss with surgical team.
[2021-04-25] MEDS ORDERED: HYDROcodone/APAP 5-325MG 1 EACH TAB PO PRN ×2 (08:34→13:25)
[2021-04-25] MEDS: DEXTROSE 5%-0.45% NACL 1,000 ML IV SCH ×2 (11:56→18:15)
[2021-04-25] MEDS: lisinopriL 20 MG TAB PO SCH (11:56)
[2021-04-25] MEDS: LACTATED RINGERS 1,000 ML IV SCH (12:03)
--- NOTE | 2021-04-25 13:29 | P.PN ---
Subjective Progress Note Date: 04/25/21 Principal diagnosis: POD #2, s/p retroperitoneal and pelvic lymph node dissection The patient experienced nausea this morning. The epidural catheter was removed. His pain is adequately controlled with Toradol. He has not passed flatus. He is ambulating without difficulty. Objective - Vital Signs Vital signs: Vital Signs Temp 98.4 F 04/25/21 07:58 Pulse 88 04/25/21 07:58 Resp 20 04/25/21 07:58 BP 153/96 04/25/21 07:58 Pulse Ox 95 04/25/21 07:58 Intake & Output 04/24/21 04/25/21 04/25/21 18:59 06:59 18:59 Intake Total 13.367 26.933 Output Total 750 7850 Balance -736.633 -7823.067 Intake: Intake, IV Titration 13.367 26.933 Amount Ropivacaine 250 mg 13.367 26.933 Hydromorphone (Pf) 5 mg In Sodium Chloride 0.9% 200 ml @ Per Protocol EPIDURAL .Q0M PRN Rx#: [id number] Output: Urine 750 7350 Emesis 500 Other: Voiding Method Indwelling Catheter Indwelling Catheter Indwelling Catheter # Emeses 1 - Constitutional General appearance: Present: average body habitus, mild distress - Gastrointestinal Gastrointestinal Comment(s): Soft, non-distended. Incision clean and dry. - Psychiatric Psychiatric: Present: A&O x's 3 Assessment and Plan (1) Malignant neoplasm of prostate Current Visit: Yes Status: Acute Code(s): C61 - MALIGNANT NEOPLASM OF PROSTATE SNOMED Code(s): 928297201 Plan: Advance diet. Continue ambulation. DC Spaulding catheter. Anticipate discharge, 1-2 days.
[2021-04-25] MEDS: METOCLOPRAMIDE 5 MG/ML 2 ML VIAL IVP PRN ×2 (15:43→21:14)
[2021-04-25] MEDS ORDERED: LABETALOL 100 MG TAB PO ONE (16:13)
[2021-04-25] MEDS ORDERED: METOPROLOL TARTRATE 5 MG/5 ML VIAL IVP STA (16:50)
--- NOTE | 2021-04-25 16:56 | P.EPPROC ---
- EP Procedure Note Electrophysiology Procedure Note: Diagnosis Ventricular bigeminy, frequent PVCs Failed sotalol therapy Coronary artery disease preserved LV systolic function Hypertension, Procedures performed Diagnostic EP study with attempted arrhythmia induction 3-D mapping PVC/VT ablation Intracardiac echo LV pacing and recording Details Patient was brought to the EP lab in a fasting state with informed consent was obtained prior to the procedure procedures performed under conscious sedation To venous sheaths placed in the right femoral vein, one venous sheaths in the right femoral artery The patient was having very frequent PVCs with a right bundle branch block morphology upright QRS is in the inferior leads and all precordial leads and a deep negative in aVL and [place] negative in lead 1 with a small initial R wave A long sheath was placed in the right femoral artery into the aorta The Pentaray catheter was placed for mapping Intracardiac echo cath was placed and diagnostic catheters were placed in the high right atrium and right ventricle Baseline measurements were as follows sinus cycle length 900 ms with frequent PVCs underlying right bundle branch block morphology, QRS 151 ms SD 159 and QT 446 ms AH 71 and HV 58 ms Sinus recovery times a 600, 540 ms were 802, 1207 and 1048 ms AV node Wenckebach block 3 and 50 ms Later burst stimulation was performed from the left ventricle for 4 ms down to 300 ms without induction of any VT Patient was having very frequent PVCs A Pentaray cath was placed in the left ventricle Intracardiac echo catheter was placed in the right atrium and in the right ventricle 3-D anatomical mapping of the aortic root aortic cusps and LV was performed. A small clear pericardial space was noted at the base of the left ventricle The Pentaray cath was placed in left ventricle and scar mapping as well as activation mapping was performed The earliest site of activation was found in the anterolateral aspect of the left ventricle just beyond the lytic root Later the mapping and ablation cath was placed and further detailed mapping was performed and the earliest site was mapped very carefully At the earliest site, a very early DP negative unipolar electrogram of -30 ms prior to the onset of the QRS is noted. The bipolar electrogram was also -30 ms prior to the onset of the QRS at the site RF energy 40 once was started and within 30 seconds the PVCs resolved Several RF lesions applied to the site Following that high output pacing was performed and non-capture was noted Following that burst ablation was performed from the LVOT area and from the base of the left ventricle but no inducible VT noted Patient is seen at IV heparin through the procedure After waiting for about 20 minutes no for the PVCs are noted and all catheters were removed Vascade was applied for the venous punctures Angio-Seal for the arterial puncture Patient tolerated the procedure well without any acute complications LV function was normal intracardiac echo Small pericardial space noted before starting the mapping procedure There is no change at the end of the procedure. Intracardiac echo and the pericardial space Result Successful PVC ablation in the left ventricle The PVC was eliminated at the site of earliest A grams with both bipolar and unipolar signals, -30 ms before the onset of the QRS width deep negative unipolar signals Plan Stop sotalol Continue aspirin
--- NOTE | 2021-04-25 17:25 | P.PN ---
Progress Note - Text Progress Note Date: 04/25/21 A- team: Indication: Hypertension Arrived on Scene to find: Nursing present and PT with blood pressure 196/127 Patient seen and examined at bedside. No chest pain, no shortness of breath, mild [place] (present all day), + diaphoresis, No numbness or tingling, + nausea present all day, + Abdominal pain present all day, not light headed or dizzy Vital signs reviewed General: + diaphoresis, no distress, appears at stated age Derm: warm, dry Head: atraumatic, normocephalic, symmetric Eyes: EOMI, no lid lag, anicteric sclera Mouth: no lip lesion, mucus membranes moist Cardiovascular: S1S2 reg, no murmur, positive posterior tibial pulse bilateral, Lungs: Decreased bs bilateral bilateral, no rhonchi, no rales , no accessory muscle use Ext: no gross muscle atrophy, no edema, no contractures Neuro: CN II-XI grossly intact, no focal neuro deficits Psych: Alert, oriented, appropriate affect Assessment/ PLan: Symptomatic hypertension - EKG review without signs of STEMI (D/w Dr. Tomlinson), Troponin X 3, no ASA with epidural unless troponin is elevated - hold oral labetalol at this time, IV lopressor X 1 now (pulse 68 after wards and BP 191/109- diastolic improving) Hiccups, intractable - thorazine - close monitoring for EPS with reglan Disposition: will remain on unit Notified: cardio [facility] notified by nursing A Total of 32 minutes of critical care time was spent on the complex care of this patient.
[2021-04-25] MEDS ORDERED: chlorproMAZINE 25 MG TAB PO ONE (17:26)
[2021-04-25] MEDS ORDERED: lisinopriL 20 MG TAB PO STA (18:01)
[2021-04-25 18:15] LABS: Basophils % (A) 0 %; Eosinophils # (A) 0.1 k/uL (0-0.7); Eosinophils % (A) 0 %; HCT 48.1 % (39.0-53.0); HGB 16.8 gm/dL (13.0-17.5); Lymphocytes # (A) 0.6 k/uL (1.0-4.8); Lymphocytes % (A) 5 %; MCH 32.2 pg (25.0-35.0); MCHC 34.9 g/dL (31.0-37.0); MCV 92.3 fL (80.0-100.0); Mean Platelet Volume 7.3; Monocytes # (A) 0.6 k/uL (0-1.0); Monocytes % (A) 5 %; Neutrophils # (A) 11.3 k/uL (1.3-7.7); Neutrophils % (A) 89 %; Platelet Count 230 k/uL (150-450); RBC 5.21 m/uL (4.30-5.90); RDW 13.8 % (11.5-15.5); WBC 12.7 k/uL (3.8-10.6)
[2021-04-25 18:44] LABS: African American GFR (CKD) >90 (>60 ml/min/1.73 sqM); Anion Gap 8 mmol/L; Blood Urea Nitrogen 16 mg/dL (9-20); Carbon Dioxide 25 mmol/L (22-30); Chloride 99 mmol/L (98-107); Glucose 167 mg/dL (74-99); Magnesium 2.1 mg/dL (1.6-2.3); Non-African American GFR(CKD) >90 (>60 ml/min/1.73 sqM); Potassium 4.8 mmol/L (3.5-5.1); Sodium 132 mmol/L (137-145)
[2021-04-25] MEDS ORDERED: hydrALAZINE HCL 20 MG/ML 1 ML VIAL IVP PRN (19:02)
[2021-04-25] MEDS ORDERED: hydrALAZINE HCL 20 MG/ML 1 ML VIAL ONE (19:05)
[2021-04-25] MEDS ORDERED: cloNIDine HCL 0.2 MG TAB PO STA (20:02)
--- NOTE | 2021-04-25 22:13 | P.CONS ---
History of Present Illness - Reason for Consult Consult date: 04/25/21 Management of hypertension. - Chief Complaint Status post retroperitoneal, pelvic lymph node dissection.. - History of Present Illness Patient is a 66-year-old male with a known history of hypertension, prostate cancer. Patient underwent transurethral biopsy which is positive for cancer. Patient also had bilateral plnd at the same time with negative nodes. He underwent PET/CT identifying maddy disease in the sacrum approximately. Patient was admitted to the hospital on 04/22/2021. Underwent retroperitoneal, pelvic lymph node dissection. Patient is epidural for postoperative analgesia. Patient is complaining of nausea and episodes of hiccups this morning. Pain is adequately controlled. Otherwise blood pressure is elevated this afternoon will 159/124 and heart rate 111 with pulse ox 97% on 2 L oxygen via nasal cannula. Internal medicine service was consulted. Patient has been afebrile. Currently being continued on [place] and Toradol as needed for pain. On D5 half-normal saline at 125 cc/h. Patient is on lisinopril 20 mg every morning for blood pressure as per home regimen. Review of Systems Constitutional: Patient denies any fever or chills . No generalized weakness or weight loss. Abdomen: Patient does have nausea. Hiccups. No diarrhea. Denies any bowel movement today. Cardiovascular: Patient denies any chest pain or short of breath no palpitations. Respiratory: patient denied any cough or sputum production. No shortness of breath Neurologic: Patient denied any numbness or tingling headache. Musculoskeletal: Patient denies any complaints of joint swelling or deformity. Skin: Negative Psychiatric: Negative Endocrine: No heat or cold intolerance. No recent weight gain. Genitourinary: No dysuria or hematuria. All other 14 point ROS negative except the above Past Medical History Past Medical History: Cancer, Eye Disorder, Hypertension Additional Past Medical History / Comment(s): Current Prostate Cancer. Glaucoma. Hx kidney stones, hx. colon polyp, urinary incontinence related to recent prostate surg. History of Any Multi-Drug Resistant Organisms: None Reported Past Surgical History: Back Surgery, Orthopedic Surgery, Prostate Surgery Additional Past Surgical History / Comment(s): Varicose vein surgery, Parathyroid surgery, bilateral Cataract surgery with lens implants. carpal tunnel surgery B/L; arthroscopies knees, robotic prostatectomy & lymph nodes removed 12-26-20 Past Anesthesia/Blood Transfusion Reactions: No Reported Reaction Smoking Status: Never smoker - Past Family History Mother Family Medical History: Cancer Additional Family Medical History / Comment(s): Melanoma. Medications and Allergies Home Medications Medication Instructions Recorded Confirmed Type lisinopriL 20 mg PO QAM 12/21/20 04/23/21 History Allergies Allergy/AdvReac Type Severity Reaction Status Date / Time No Known Allergies Allergy Verified 04/17/21 11:18 Physical Exam Vitals: Vital Signs Temp Pulse Resp BP BP Pulse Ox 04/25/21 21:25 148/94 04/25/21 21:06 111 H 145/98 04/25/21 20:56 110 H 157/96 04/25/21 20:46 109 H 169/98 04/25/21 20:30 160/99 04/25/21 20:14 102 H 159/103 04/25/21 20:00 147/108 04/25/21 19:39 159/108 04/25/21 19:17 78 20 164/98 97 04/25/21 18:47 64 18 186/123 96 04/25/21 18:38 79 20 177/114 97 04/25/21 18:35 82 187/117 04/25/21 18:22 69 183/124 04/25/21 18:08 64 182/109 04/25/21 18:02 67 178/104 04/25/21 17:45 69 177/114 04/25/21 17:38 68 181/106 04/25/21 17:04 100 187/116 04/25/21 16:58 114 H 167/124 04/25/21 16:45 193/124 04/25/21 15:53 97.9 F 111 H 20 159/124 97 04/25/21 13:43 98.0 F 107 H 18 130/95 96 04/25/21 07:58 98.4 F 88 20 153/96 95 04/25/21 02:00 98.1 F 76 17 135/82 96 Intake and Output 04/25/21 04/25/21 04/25/21 06:59 14:59 22:59 Intake Total 1500 Output Total 3850 400 Balance -3850 1100 Intake: Intake, IV Titration 1500 Amount Dextrose 5%-0.45% NaCl 1, 1500 000 ml @ 125 mls/hr IV . Q8H [facility] Rx#:[id number] Output: Urine 3850 400 Other: Voiding Method Indwelling Catheter PHYSICAL EXAMINATION: Patient is lying in the bed comfortably, no acute distress, awake alert and oriented.. HEENT: Normocephalic. Neck is supple. Pupils reactive. Nostrils clear. Oral cavity is moist. Neck reveals no JVD, carotid bruits, or thyromegaly. CHEST EXAMINATION: Trachea is central. Symmetrical expansion. Bibasilar diminished sounds. No wheezing or rhonchi. Nonlabored breathing.. CARDIAC: Normal S1, S2 with no gallops. No murmurs ABDOMEN: Soft. Bowel sounds normal. No organomegaly. No abdominal bruits. Extremities: reveal no edema. No clubbing or cyanosis Neurologically awake, alert, oriented x3 with well-coordinated movements. No focal deficits noted Skin: No rash or skin lesions. Psychiatric: Coperative. Nonsuicidal Musculoskeletal: No joint swelling or deformity. Normal range of motion. Results CBC & Chem 7: 04/25/21 18:02 04/25/21 18:02 Labs: Abnormal Lab Results - Last 24 Hours (Table) 04/25/21 04/25/21 Range/Units 18:02 18:02 WBC 12.7 H (3.8-10.6) k/uL Neutrophils # 11.3 H (1.3-7.7) k/uL Lymphocytes # 0.6 L (1.0-4.8) k/uL Sodium 132 L (137-145) mmol/L Glucose 167 H (74-99) mg/dL Assessment and Plan Assessment: Uncontrolled hypertension possible postoperative N/V and hiccups as well as fluid status S/p retroperitoneal, pelvic lymph node dissection on 04/23/2021 Prostate cancer Hypertension Plan: Patient will be continued on symptomatic management for nausea and Thorazine will be added for intermittent hiccups. Monitor blood pressure. Patient is being continued on lisinopril 20 mg every morning which was less than an hour ago. If the patient continues to be hypotensive, will do labetalol 100 mg x 1 and monitor fluid status closely. Repeat chest x-ray in the a.m. Patient is tolerating oral diet currently. Continue with DVT prophylaxis, pain management as per primary team. We will continue to follow closely and further recommendations based on the clinical course. Thank you for your consult. Time with Patient: Greater than 30
[2021-04-26] MEDS: LACTATED RINGERS 1,000 ML IV SCH (06:34)
[2021-04-26] MEDS: DEXTROSE 5%-0.45% NACL 1,000 ML IV SCH (06:34)
--- NOTE | 2021-04-26 07:34 | XR ---
EXAMINATION TYPE: XR chest 1V DATE OF EXAM: 04/26/2021 COMPARISON: 04/16/2021 INDICATION: Tachycardia TECHNIQUE: Single frontal view of the chest is obtained. FINDINGS: The heart size is normal. The pulmonary vasculature is normal. The lungs are clear. Fixation rods are present through the upper thoracic spine. IMPRESSION: 1. No acute pulmonary process.
[2021-04-26] MEDS: lisinopriL 20 MG TAB PO SCH ×2 (07:43→20:59)
[2021-04-26 07:56] LABS: African American GFR (CKD) >90 (>60 ml/min/1.73 sqM); Anion Gap 6 mmol/L; Blood Urea Nitrogen 14 mg/dL (9-20); Carbon Dioxide 26 mmol/L (22-30); Chloride 98 mmol/L (98-107); Glucose 136 mg/dL (74-99); Non-African American GFR(CKD) >90 (>60 ml/min/1.73 sqM); Potassium 4.6 mmol/L (3.5-5.1); Sodium 130 mmol/L (137-145)
--- NOTE | 2021-04-26 08:35 | P.PN ---
Subjective Progress Note Date: 04/26/21 Principal diagnosis: POD #3, s/p retroperitoneal and pelvic lymph node dissection The patient experienced nausea and hiccups yesterday. In the afternoon, his pulse and blood pressure increased. He was seen by internal medicine. His troponin levels are normal. He is feeling somewhat better this morning. He has not passed flatus. He tolerated breakfast. Objective - Vital Signs Vital signs: Vital Signs Temp 97.8 F 04/26/21 03:50 Pulse 95 04/26/21 03:50 Resp 19 04/26/21 03:50 BP 163/96 04/26/21 03:50 Pulse Ox 97 04/26/21 03:50 Intake & Output 04/25/21 04/25/21 04/26/21 06:59 18:59 06:59 Intake Total 26.933 1500 Output Total 7850 400 Balance -7823.067 1100 Intake: Intake, IV Titration 26.933 1500 Amount Dextrose 5%-0.45% NaCl 1, 1500 000 ml @ 125 mls/hr IV . Q8H [facility] Rx#:[id number] Ropivacaine 250 mg 26.933 Hydromorphone (Pf) 5 mg In Sodium Chloride 0.9% 200 ml @ Per Protocol EPIDURAL .Q0M PRN Rx#: [id number] Output: Urine 7350 400 Emesis 500 Other: Voiding Method Indwelling Catheter Indwelling Catheter Indwelling Catheter # Emeses 1 - Constitutional General appearance: Present: average body habitus, cooperative, no acute distress - Gastrointestinal Gastrointestinal Comment(s): Soft, non-distended. Incision clean and dry. - Psychiatric Psychiatric: Present: A&O x's 3 - Labs CBC & Chem 7: 04/25/21 18:02 04/26/21 07:13 Labs: Abnormal Lab Results - Last 24 Hours (Table) 04/25/21 04/25/21 Range/Units 18:02 18:02 WBC 12.7 H (3.8-10.6) k/uL Neutrophils # 11.3 H (1.3-7.7) k/uL Lymphocytes # 0.6 L (1.0-4.8) k/uL Sodium 132 L (137-145) mmol/L Glucose 167 H (74-99) mg/dL Assessment and Plan (1) Malignant neoplasm of prostate Current Visit: Yes Status: Acute Code(s): C61 - MALIGNANT NEOPLASM OF PROSTATE SNOMED Code(s): 551698025 Plan: The patient was advised that return of bowel function in the next 1-2 days is anticipated. It is my expectation that he will then feel much better. In the meantime, ambulation is encouraged.
--- NOTE | 2021-04-26 10:59 | XR ---
EXAMINATION TYPE: XR abdomen 1V DATE OF EXAM: 04/26/2021 COMPARISON: 08/10/2014 INDICATION: Ileus TECHNIQUE: Single view abdomen upright view FINDINGS: There are multiple prominent air-filled small bowel loops with air-fluid levels. Some differential ai r-fluid levels are present. No free air is identified. No mass effect is evident. Some colonic bowel gas is present distally. Anterior abdominal skin aziza are present. Multiple surgical clips are wit hin the mid abdomen. Psoas margins are not well visualized. No organomegaly is present. IMPRESSION: 1. Clinical correlation recommended for small bowel obstruction. A Red level critical message alert has been initiated for Akhil Karimi via the [employer] Critical Results System on 04/26/2021 10:57 AM. This message alert has been sent to Akhil Karimi v ia the preferences provided by the clinician for the receipt of Radiology Critical Findings. Message ID [id number].
[2021-04-26 11:10] LABS: Basophils # (A) 0.01 X 10*3/uL (0.00-0.10); Basophils % (A) 0.1 %; Eosinophils # (A) 0.02 X 10*3/uL (0.04-0.35); Eosinophils % (A) 0.2 %; HCT 45.2 % (39.6-50.0); HGB 15.6 g/dL (13.0-17.0); Lymphocytes # (A) 1.11 X 10*3/uL (0.90-5.00); Lymphocytes % (A) 9.9 %; MCH 30.8 pg (27.0-32.0); MCHC 34.5 g/dL (32.0-37.0); MCV 89.3 fL (80.0-97.0); Mean Platelet Volume 10.7 fL (9.5-12.2); Monocytes # (A) 1.19 X 10*3/uL (0.20-1.00); Monocytes % (A) 10.6 %; Neutrophils # (A) 8.86 X 10*3/uL (1.80-7.70); Neutrophils % (A) 78.9 %; Platelet Count 211 X 10*3/uL (140-440); RBC 5.06 X 10*6/uL (4.40-5.60); RDW 13.2 % (11.5-14.5); WBC 11.22 X 10*3/uL (4.50-10.00)
[2021-04-26] MEDS: DEXTROSE 5%-0.9% NACL 1,000 ML IV SCH ×2 (11:26→17:17)
--- NOTE | 2021-04-26 13:09 | P.CRDCN ---
History of Present Illness Consult date: 04/26/21 History of present illness: HISTORY OF PRESENT ILLNESS: This is a 66 year old male with a past medical history significant for prostate cancer and hypertension. Patient does not follow with a consulting application engineer. We have been asked to see the patient in consultation for STEMI. Patient examined at the bedside. Patient underwent retroperitoneal and pelvic lymph node dissection with Dr. Jalloh on 04/23/2021 secondary to his prostate cancer. Patients blood pressure was elevated yesterday and an EKG was obtained. The EKG machine interpreted the EKG as an acute STEMI. However this was incorrect. The patient does continue to have elevated blood pressures today. He denies chest pain or pressure. Denies shortness of breath. Denies dizziness or lightheadedness. EKG reveals sinus mechanism with no ST elevation noted Chest xray negative for acute pulmonary process Laboratory data: WBC 11.2. Hemoglobin 15.6. Platelet count 211. Sodium 130. Potassium 4.6. BUN 14. Creatinine 0.67. Troponin negative 3. Current home cardiac medications include lisinopril 20 mg daily REVIEW OF SYSTEMS: At the time of my exam: CONSTITUTIONAL: Denies fever or chills. HEENT: Denies blurred vision, vision changes, or eye pain. Denies hemoptysis CARDIOVASCULAR: Denies chest pain. Denies orthopnea. Denies PND. Denies palpitations RESPIRATORY: Denies shortness of breath. GASTROINTESTINAL: Denies abdominal pain. Denies nausea or vomiting. HEMATOLOGIC: Denies bleeding disorders. GENITOURINARY: Denies any blood in urine. SKIN: Denies pruitis. Denies rash. PHYSICAL EXAM: VITAL SIGNS: Reviewed. GENERAL: Well-developed in no acute distress. HEENT: Head is normocephalic. Pupils are equal, round. Sclerae anicteric. Mucous membranes of the mouth are moist. Neck supple. No JVD or thyromegaly LUNGS: Respirations even and unlabored. Lungs essentially clear to auscultation bilaterally. HEART: Regular rate and rhythm. S1 and S2 heard. ABDOMEN: Soft. Nondistended. Nontender. EXTREMITIES: Normal range of motion. No clubbing or cyanosis. Peripheral pulses intact. No lower extremity edema NEUROLOGIC: Awake and alert. Oriented x 3. ASSESSMENT: Prostate cancer, s/p retroperitoneal and pelvic lymph node dissection Hypertension PLAN: An acute coronary event has been ruled Increase lisinopril to 20mg BID Continue to monitor blood pressure Patient may follow up post discharge with Dr. Tomlinson Nurse practitioner note has been reviewed by physician. Signing provider agrees with the documented findings, assessment, and plan of care. Past Medical History Past Medical History: Cancer, Eye Disorder, Hypertension Additional Past Medical History / Comment(s): Current Prostate Cancer. Glaucoma. Hx kidney stones, hx. colon polyp, urinary incontinence related to recent prostate surg. History of Any Multi-Drug Resistant Organisms: None Reported Past Surgical History: Back Surgery, Orthopedic Surgery, Prostate Surgery Additional Past Surgical History / Comment(s): Varicose vein surgery, Parathyroid surgery, bilateral Cataract surgery with lens implants. carpal tunnel surgery B/L; arthroscopies knees, robotic prostatectomy & lymph nodes removed 12-26-20 Past Anesthesia/Blood Transfusion Reactions: No Reported Reaction Smoking Status: Never smoker - Past Family History Mother Family Medical History: Cancer Additional Family Medical History / Comment(s): Melanoma. Medications and Allergies Home Medications Medication Instructions Recorded Confirmed Type lisinopriL 20 mg PO QAM 12/21/20 04/23/21 History Allergies Allergy/AdvReac Type Severity Reaction Status Date / Time No Known Allergies Allergy Verified 04/17/21 11:18 Physical Exam Vitals: Vital Signs Temp Pulse Resp BP Pulse Ox 04/26/21 07:47 98.2 F 99 16 155/106 96 04/26/21 03:50 97.8 F 95 19 163/96 97 04/26/21 00:06 128/87 04/25/21 23:56 131/87 04/25/21 23:46 150/92 04/25/21 23:36 142/94 04/25/21 21:25 148/94 04/25/21 21:06 111 H 145/98 04/25/21 20:56 110 H 157/96 04/25/21 20:46 109 H 169/98 04/25/21 20:30 160/99 04/25/21 20:14 102 H 159/103 04/25/21 20:00 147/108 04/25/21 19:39 159/108 04/25/21 19:17 78 20 164/98 97 04/25/21 18:47 64 18 186/123 96 04/25/21 18:38 79 20 177/114 97 04/25/21 18:35 82 187/117 04/25/21 18:22 69 183/124 04/25/21 18:08 64 182/109 04/25/21 18:02 67 178/104 04/25/21 17:45 69 177/114 04/25/21 17:38 68 181/106 04/25/21 17:04 100 187/116 04/25/21 16:58 114 H 167/124 04/25/21 16:45 193/124 04/25/21 15:53 97.9 F 111 H 20 159/124 97 04/25/21 13:43 98.0 F 107 H 18 130/95 96 Intake and Output 04/25/21 04/26/21 04/26/21 22:59 06:59 14:59 Intake Total 1500 Output Total 400 800 Balance 1100 -800 Intake: Intake, IV Titration 1500 Amount Dextrose 5%-0.45% NaCl 1, 1500 000 ml @ 20 mls/hr IV . Q24H [facility] Rx#:[id number] Output: Urine 400 800 Other: Voiding Method Indwelling Catheter Indwelling Catheter # Voids 0 Results 04/26/21 07:13 04/26/21 07:13 Cardiac Enzymes 04/25/21 04/25/21 04/26/21 Range/Units 18:02 20:55 00:16 Troponin I <0.012 <0.012 0.014 (0.000-0.034) ng/mL CBC 04/25/21 04/26/21 Range/Units 18:02 07:13 WBC 12.7 H 11.22 H (3.8-10.6) k/uL RBC 5.21 5.06 (4.30-5.90) m/uL Hgb 16.8 15.6 (13.0-17.5) gm/dL Hct 48.1 45.2 (39.0-53.0) % Plt Count 230 211 (150-450) k/uL Comprehensive Metabolic Panel 04/25/21 04/26/21 Range/Units 18:02 07:13 Sodium 132 L 130 L (137-145) mmol/L Potassium 4.8 4.6 (3.5-5.1) mmol/L Chloride 99 98 (98-107) mmol/L Carbon Dioxide 25 26 (22-30) mmol/L BUN 16 14 (9-20) mg/dL Creatinine 0.69 0.67 (0.66-1.25) mg/dL Glucose 167 H 136 H (74-99) mg/dL Calcium 10.0 10.0 (8.4-10.2) mg/dL Current Medications Generic Name Dose Route Start Last Admin Trade Name Freq PRN Reason Stop Dose Admin Hydrocodone Bitart/Acetaminophen 1 each 04/25/21 08:34 Hydrocodone/Apap 5-325mg 1 Each Tab PO Q4HR PRN Pain Hydrocodone Bitart/Acetaminophen 2 each 04/25/21 13:25 Hydrocodone/Apap 5-325mg 1 Each Tab PO Q4HR PRN Moderate to Severe Pain Diphenhydramine HCl 50 mg 04/24/21 09:01 04/24/21 18:01 Diphenhydramine 25 Mg Cap PO 50 mg TID PRN Administration Itching Lactated Ringer's 1,000 mls @ 20 mls/hr 04/23/21 05:31 04/26/21 06:34 Lactated Ringers IV Not Given .Q24H [facility] Ropivacaine 250 mg/ 250 mls @ 0 mls/hr 04/23/21 13:19 04/24/21 19:48 Hydromorphone HCl 5 mg/ Sodium EPIDURAL 3 mls/hr Chloride .Q0M PRN Infusion Pain Control Protocol Per Protocol Dextrose/Sodium Chloride 1,000 mls @ 75 mls/hr 04/26/21 10:15 04/26/21 11:26 Dextrose 5%-Ns Iv Soln IV Not Given .[id number] [facility] Ketorolac Tromethamine 15 mg 04/23/21 15:15 04/25/21 11:55 Ketorolac 15 Mg/Ml 1 Ml Vial IVP 04/26/21 15:16 15 mg Q6HR PRN Administration Breakthrough Pain Lisinopril 20 mg 04/26/21 21:00 Lisinopril 20 Mg Tab PO BID [facility] Metoclopramide HCl 5 mg 04/25/21 15:26 04/25/21 15:43 Metoclopramide 5 Mg/Ml 2 Ml Vial IVP 5 mg Q6HR PRN Administration Nausea And Vomiting Naloxone HCl 0.2 mg 04/23/21 13:19 Naloxone 0.4 Mg/Ml 1 Ml Vial IV Q2M PRN Opioid Reversal Ondansetron HCl 4 mg 04/24/21 19:32 04/25/21 20:08 Ondansetron 4 Mg/2 Ml Vial IVP 4 mg Q6HR PRN Administration Nausea And Vomiting Intake and Output 04/25/21 04/26/21 04/26/21 22:59 06:59 14:59 Intake Total 1500 Output Total 400 800 Balance 1100 -800 Intake: Intake, IV Titration 1500 Amount Dextrose 5%-0.45% NaCl 1, 1500 000 ml @ 20 mls/hr IV . Q24H [facility] Rx#:[id number] Output: Urine 400 800 Other: Voiding Method Indwelling Catheter Indwelling Catheter # Voids 0 04/26/21 07:13 04/26/21 07:13
--- NOTE | 2021-04-26 15:51 | P.PN ---
Subjective Progress Note Date: 04/26/21 Principal diagnosis: Nausea and vomiting and hiccups Uncontrolled hypertension Patient is a 66-year-old male with a known history of hypertension, prostate cancer. Patient underwent transurethral biopsy which is positive for cancer. Patient also had bilateral plnd at the same time with negative nodes. He underwent PET/CT identifying maddy disease in the sacrum approximately. Patient was admitted to the hospital on 04/22/2021. Underwent retroperitoneal, pelvic lymph node dissection. Patient is epidural for postoperative analgesia. Patient is complaining of nausea and episodes of hiccups this morning. Pain is adequately controlled. Otherwise blood pressure is elevated this afternoon will 159/124 and heart rate 111 with pulse ox 97% on 2 L oxygen via nasal cannula. Internal medicine service was consulted. Patient has been afebrile. Currently being continued on [place] and Toradol as needed for pain. On D5 half-normal saline at 125 cc/h. Patient is on lisinopril 20 mg every morning for blood pressure as per home regimen. 04/26/2021 Patient is currently lying in the bed comfortably. Awake alert oriented 3. Nausea is much improved. Patient was started on full liquid diet. Blood pressure was elevated yesterday with SBP up to 190s. Patient was given a dose of IV Lopressor and extra dose of lisinopril was given. There was also concern about STEMI and was seen by cardiology. No evidence of STEMI as per cardiology. No complaints of chest pain or shortness of breath. Patient is able to ambulate in the hallway. Abdominal x-ray showed multiple prominent 8 field small bowel loops with air- fluid levels. Correlate for small bowel obstruction. Patient is able to pass flatness and no bowel movement today. No complaints of worsening abdominal pain. Current medications reviewed. Objective - Vital Signs Vital signs: Vital Signs Temp 98.4 F 04/26/21 13:44 Pulse 87 04/26/21 13:44 Resp 16 04/26/21 13:44 BP 144/98 04/26/21 13:44 Pulse Ox 94 L 04/26/21 13:44 Intake & Output 04/25/21 04/26/21 04/26/21 18:59 06:59 18:59 Intake Total 1500 Output Total 400 1100 Balance 1100 -1100 Intake: Intake, IV Titration 1500 Amount Dextrose 5%-0.45% NaCl 1, 1500 000 ml @ 20 mls/hr IV . Q24H [facility] Rx#:[id number] Output: Urine 400 1100 Other: Voiding Method Indwelling Catheter Indwelling Catheter Indwelling Catheter # Voids 1 - Exam PHYSICAL EXAMINATION: Patient is lying in the bed comfortably, no acute distress, awake alert and oriented.. HEENT: Normocephalic. Neck is supple. Pupils reactive. Nostrils clear. Oral cavity is moist. Neck reveals no JVD, carotid bruits, or thyromegaly. CHEST EXAMINATION: Trachea is central. Symmetrical expansion. Bibasilar diminished sounds. No wheezing or rhonchi. Nonlabored breathing.. CARDIAC: Normal S1, S2 with no gallops. No murmurs ABDOMEN: Soft. Bowel sounds sluggish.. No organomegaly. No abdominal bruits. Extremities: reveal no edema. No clubbing or cyanosis Neurologically awake, alert, oriented x3 with well-coordinated movements. No focal deficits noted Skin: No rash or skin lesions. Psychiatric: Coperative. Nonsuicidal Musculoskeletal: No joint swelling or deformity. Normal range of motion. - Labs CBC & Chem 7: 04/26/21 07:13 04/26/21 07:13 Labs: Abnormal Lab Results - Last 24 Hours (Table) 04/25/21 04/25/21 04/26/21 Range/Units 18:02 18:02 07:13 WBC 12.7 H 11.22 H (3.8-10.6) k/uL Neutrophils # 11.3 H 8.86 H (1.3-7.7) k/uL Lymphocytes # 0.6 L (1.0-4.8) k/uL Monocytes # 1.19 H (0.20-1.00) X 10*3/uL Eosinophils # 0.02 L (0.04-0.35) X 10*3/uL Sodium 132 L (137-145) mmol/L Glucose 167 H (74-99) mg/dL 04/26/21 Range/Units 07:13 WBC (3.8-10.6) k/uL Neutrophils # (1.3-7.7) k/uL Lymphocytes # (1.0-4.8) k/uL Monocytes # (0.20-1.00) X 10*3/uL Eosinophils # (0.04-0.35) X 10*3/uL Sodium 130 L (137-145) mmol/L Glucose 136 H (74-99) mg/dL Assessment and Plan Assessment: Uncontrolled hypertension possible postoperative N/V and hiccups as well as fluid status. Improved now. Mild hyponatremia 130 Ileus/small bowel obstruction. S/p retroperitoneal, pelvic lymph node dissection on 04/23/2021 Prostate cancer Hypertension Plan: Patient will be continued on symptomatic management for nausea and Thorazine will be added for intermittent hiccups. Monitor blood pressure. IV fluids changed to D5 normal saline due to sodium level I:XXX and reduce rate to 75 mL hour. Patient was started on full liquid Continue with lisinopril changed to twice daily. Cardiology is on board. Continue with DVT prophylaxis, pain management as per primary team. We will continue to follow closely and further recommendations based on the clinical course. Time with Patient: Greater than 30
[2021-04-26] MEDS: ONDANSETRON 4 MG/2 ML VIAL IVP PRN (19:54)
[2021-04-27] MEDS: DEXTROSE 5%-0.9% NACL 1,000 ML IV SCH ×3 (00:54→18:53)
[2021-04-27] MEDS: ONDANSETRON 4 MG/2 ML VIAL IVP PRN ×3 (04:50→17:27)
[2021-04-27] MEDS: LACTATED RINGERS 1,000 ML IV SCH (05:39)
[2021-04-27] MEDS: METOCLOPRAMIDE 5 MG/ML 2 ML VIAL IVP PRN ×3 (07:48→23:15)
[2021-04-27 07:57] LABS: Glucose,Whole Blood 123 mg/dL (75-99)
--- NOTE | 2021-04-27 08:28 | P.PN ---
Subjective Progress Note Date: 04/27/21 Principal diagnosis: POD #4, s/p retroperitoneal and pelvic lymph node dissection The patient experienced nausea yesterday and had several episodes of emesis. He continues to report nausea. He has begun passing flatus. He is ambulating well. He has not had a bowel movement. Objective - Vital Signs Vital signs: Vital Signs Temp 98.2 F 04/27/21 07:37 Pulse 86 04/27/21 07:37 Resp 20 04/27/21 07:37 BP 136/85 04/27/21 07:37 Pulse Ox 94 L 04/27/21 07:37 Intake & Output 04/26/21 04/27/21 04/27/21 18:59 06:59 18:59 Intake Total 900 Output Total 1100 Balance -1100 900 Intake: Intake, IV Titration 900 Amount Dextrose 5%-0.9% NaCl 1, 900 000 ml @ 75 mls/hr IV . [id number] [facility] Rx#:[id number] Output: Urine 1100 Other: Voiding Method Indwelling Catheter # Voids 1 2 # Emeses 1 - Constitutional General appearance: Present: average body habitus, cooperative, mild distress - Gastrointestinal Gastrointestinal Comment(s): Moderately distended. Incision clean, dry, and intact. - Psychiatric Psychiatric: Present: A&O x's 3 - Labs CBC & Chem 7: 04/26/21 07:13 04/26/21 07:13 Labs: Abnormal Lab Results - Last 24 Hours (Table) 04/26/21 04/27/21 Range/Units 07:13 07:45 WBC 11.22 H (4.50-10.00) X 10*3/uL Neutrophils # 8.86 H (1.80-7.70) X 10*3/uL Monocytes # 1.19 H (0.20-1.00) X 10*3/uL Eosinophils # 0.02 L (0.04-0.35) X 10*3/uL POC Glucose (mg/dL) 123 H (75-99) mg/dL Assessment and Plan (1) Malignant neoplasm of prostate Current Visit: Yes Status: Acute Code(s): C61 - MALIGNANT NEOPLASM OF PROSTATE SNOMED Code(s): 593026228 Plan: Abdominal x-ray shows air-fluid levels. I believe a postoperative paralytic ileus is far more likely than small bowel obstruction at this time. The fact he has begun passing flatus suggest return of bowel function. The pathology report revealed metastatic prostate cancer in 2 of 11 lymph nodes.
[2021-04-27] MEDS: lisinopriL 20 MG TAB PO SCH ×2 (09:30→22:01)
[2021-04-27] MEDS ORDERED: ACETAMINOPHEN TAB 500 MG TAB PO PRN (13:55)
[2021-04-27] MEDS ORDERED: DOCUSATE 100 MG CAP PO SCH (14:00)
[2021-04-27] MEDS: FAMOTIDINE 20 MG/2 ML VIAL IV SCH (18:54)
[2021-04-27] MEDS: KETOROLAC 15 MG/ML 1 ML VIAL IVP PRN (23:15)
--- NOTE | 2021-04-27 23:42 | P.PN ---
Subjective Progress Note Date: 04/27/21 Principal diagnosis: Nausea and vomiting and hiccups Uncontrolled hypertension Patient is a 66-year-old male with a known history of hypertension, prostate cancer. Patient underwent transurethral biopsy which is positive for cancer. Patient also had bilateral plnd at the same time with negative nodes. He underwent PET/CT identifying maddy disease in the sacrum approximately. Patient was admitted to the hospital on 04/22/2021. Underwent retroperitoneal, pelvic lymph node dissection. Patient is epidural for postoperative analgesia. Patient is complaining of nausea and episodes of hiccups this morning. Pain is adequately controlled. Otherwise blood pressure is elevated this afternoon will 159/124 and heart rate 111 with pulse ox 97% on 2 L oxygen via nasal cannula. Internal medicine service was consulted. Patient has been afebrile. Currently being continued on [place] and Toradol as needed for pain. On D5 half-normal saline at 125 cc/h. Patient is on lisinopril 20 mg every morning for blood pressure as per home regimen. 04/26/2021 Patient is currently lying in the bed comfortably. Awake alert oriented 3. Nausea is much improved. Patient was started on full liquid diet. Blood pressure was elevated yesterday with SBP up to 190s. Patient was given a dose of IV Lopressor and extra dose of lisinopril was given. There was also concern about STEMI and was seen by cardiology. No evidence of STEMI as per cardiology. No complaints of chest pain or shortness of breath. Patient is able to ambulate in the hallway. Abdominal x-ray showed multiple prominent 8 field small bowel loops with air- fluid levels. Correlate for small bowel obstruction. Patient is able to pass flatness and no bowel movement today. No complaints of worsening abdominal pain. 04/27/2021 Patient did have nausea vomiting episodes of vomiting. Patient continues to have nausea. Otherwise patient is able to pass flatus. Did have a small bowel movement at this afternoon. Patient is able to ambulate in the hallway. Denies any complaints of chest pain. No abdominal pain. Pain is controlled. Patient has been afebrile. Encouraged with incentive spirometry and ambulation. If the patient continues to have nausea and vomiting tonight, patient will be placed on NG tube and nothing by mouth until symptomatic improvement. Consider general surgery evaluation. Blood pressure is controlled otherwise. Current medications reviewed. Objective - Vital Signs Vital signs: Vital Signs Temp 98.2 F 04/27/21 07:37 Pulse 86 04/27/21 07:37 Resp 20 04/27/21 07:37 BP 136/85 04/27/21 07:37 Pulse Ox 94 L 04/27/21 07:37 Intake & Output 04/26/21 04/27/21 04/27/21 18:59 06:59 18:59 Intake Total 900 Output Total 1100 Balance -1100 900 Intake: Intake, IV Titration 900 Amount Dextrose 5%-0.9% NaCl 1, 900 000 ml @ 75 mls/hr IV . [id number] [facility] Rx#:[id number] Output: Urine 1100 Other: Voiding Method Indwelling Catheter Toilet # Voids 1 2 # Emeses 1 - Exam PHYSICAL EXAMINATION: Patient is lying in the bed comfortably, no acute distress, awake alert and oriented.. HEENT: Normocephalic. Neck is supple. Pupils reactive. Nostrils clear. Oral cavity is moist. Neck reveals no JVD, carotid bruits, or thyromegaly. CHEST EXAMINATION: Trachea is central. Symmetrical expansion. Bibasilar diminished sounds. No wheezing or rhonchi. Nonlabored breathing.. CARDIAC: Normal S1, S2 with no gallops. No murmurs ABDOMEN: Soft. Bowel sounds present. No organomegaly. No abdominal bruits. Extremities: reveal no edema. No clubbing or cyanosis Neurologically awake, alert, oriented x3 with well-coordinated movements. No focal deficits noted Skin: No rash or skin lesions. Psychiatric: Coperative. Nonsuicidal Musculoskeletal: No joint swelling or deformity. Normal range of motion. - Labs CBC & Chem 7: 04/26/21 07:13 04/26/21 07:13 Labs: Abnormal Lab Results - Last 24 Hours (Table) 04/27/21 Range/Units 07:45 POC Glucose (mg/dL) 123 H (75-99) mg/dL Assessment and Plan Assessment: Ileus/ Acute small bowel obstruction. Uncontrolled hypertension possible postoperative N/V and hiccups as well as fluid status. Improved now. Mild hyponatremia 130 S/p retroperitoneal, pelvic lymph node dissection on 04/23/2021 Prostate cancer Hypertension Plan: Patient will be continued on symptomatic management for nausea and vomiting. NG tube if the patient continues to have episodes of vomiting tonight. General surgery evaluation. Continue with IV hydration with normal saline at 75 cc/h. Blood pressure is controlled. Continue with lisinopril 20 mg twice daily. Continue with DVT prophylaxis, pain management as per primary team. We will continue to follow closely and further recommendations based on the clinical course. Time with Patient: Greater than 30
[2021-04-28] MEDS: ONDANSETRON 4 MG/2 ML VIAL IVP PRN ×2 (01:45→07:50)
[2021-04-28] MEDS: KETOROLAC 15 MG/ML 1 ML VIAL IVP PRN ×2 (05:15→10:41)
[2021-04-28] MEDS: METOCLOPRAMIDE 5 MG/ML 2 ML VIAL IVP PRN ×2 (05:15→10:42)
[2021-04-28] MEDS: LACTATED RINGERS 1,000 ML IV SCH (07:50)
[2021-04-28] MEDS: FAMOTIDINE 20 MG/2 ML VIAL IV SCH ×2 (07:50→22:02)
[2021-04-28] MEDS: lisinopriL 20 MG TAB PO SCH ×2 (07:50→22:03)
--- NOTE | 2021-04-28 10:52 | P.PN ---
Subjective Progress Note Date: 04/28/21 Principal diagnosis: POD #5, s/p retroperitoneal and pelvic lymph node dissection The patient experienced persistent nausea yesterday and had several episodes of emesis. He also had several episodes of diarrhea. He is weak but otherwise feeling much better this morning. His sharp abdominal pain has resolved, and his hiccups are much improved. He reports mild nausea at this time. Objective - Vital Signs Vital signs: Vital Signs Temp 98.3 F 04/28/21 02:20 Pulse 90 04/28/21 02:20 Resp 16 04/28/21 02:20 BP 121/82 04/28/21 02:20 Pulse Ox 95 04/28/21 02:20 Intake & Output 04/27/21 04/28/21 04/28/21 18:59 06:59 18:59 Intake Total 600 Balance 600 Intake: IV 600 Dextrose 5%-0.9% NaCl 1, 600 000 ml @ 75 mls/hr IV . [id number] [facility] Rx#:[id number] Other: Voiding Method Toilet Toilet - Constitutional General appearance: Present: cooperative, no acute distress - Gastrointestinal Gastrointestinal Comment(s): Soft, mildly distended, non-tender. Incision clean, dry, and intact. - Musculoskeletal Musculoskeletal Comment(s): No peripheral edema - Psychiatric Psychiatric: Present: A&O x's 3 - Labs CBC & Chem 7: 04/26/21 07:13 04/26/21 07:13 Labs: Abnormal Lab Results - Last 24 Hours (Table) 04/27/21 Range/Units 07:45 POC Glucose (mg/dL) 123 H (75-99) mg/dL - Imaging and Cardiology Abdominal x-ray: report reviewed, image reviewed Assessment and Plan (1) Malignant neoplasm of prostate Current Visit: Yes Status: Acute Code(s): C61 - MALIGNANT NEOPLASM OF PROSTATE SNOMED Code(s): 595874737 Plan: The patient appears to have a resolving paralytic ileus. He will remain NPO. In view of this, the IV rate will be increased. I am hopeful that diet can be gradually resumed tomorrow.
[2021-04-28] MEDS: DEXTROSE 5%-0.9% NACL 1,000 ML IV SCH ×2 (10:57→19:30)
[2021-04-28] MEDS ORDERED: LACTATED RINGERS 500 ML IV ONE (11:00)
[2021-04-28 12:08] LABS: Basophils # (A) 0 X 10*3/uL (0.00-0.10); Basophils % (A) 0 %; Eosinophils # (A) 0.08 X 10*3/uL (0.04-0.35); Eosinophils % (A) 2.9 %; HCT 35.5 % (39.6-50.0); HGB 12.1 g/dL (13.0-17.0); Lymphocytes # (A) 0.47 X 10*3/uL (0.90-5.00); Lymphocytes % (A) 16.8 %; MCH 30.4 pg (27.0-32.0); MCHC 34.1 g/dL (32.0-37.0); MCV 89.2 fL (80.0-97.0); Mean Platelet Volume 10.1 fL (9.5-12.2); Monocytes # (A) 0.47 X 10*3/uL (0.20-1.00); Monocytes % (A) 16.8 %; Neutrophils # (A) 1.77 X 10*3/uL (1.80-7.70); Neutrophils % (A) 63.1 %; Platelet Count 174 X 10*3/uL (140-440); RBC 3.98 X 10*6/uL (4.40-5.60); RDW 13.3 % (11.5-14.5)
[2021-04-28 12:29] LABS: African American GFR (CKD) 122.3 (60.0-200.0); Anion Gap 5.5 mmol/L (4.00-12.00); BUN/Creat Ratio 33.33 Ratio (12.00-20.00); Calcium 9.1 mg/dL (8.7-10.3); Carbon Dioxide 25.5 mmol/L (21.6-31.8); Non-African American GFR(CKD) 105.5 (60.0-200.0); Potassium 3.9 mmol/L (3.5-5.5)
[2021-04-28 21:00] VITALS: RESP 16
--- NOTE | 2021-04-29 00:05 | P.PN ---
Subjective Progress Note Date: 04/28/21 Principal diagnosis: Nausea and vomiting and hiccups Uncontrolled hypertension Patient is a 66-year-old male with a known history of hypertension, prostate cancer. Patient underwent transurethral biopsy which is positive for cancer. Patient also had bilateral plnd at the same time with negative nodes. He underwent PET/CT identifying maddy disease in the sacrum approximately. Patient was admitted to the hospital on 04/22/2021. Underwent retroperitoneal, pelvic lymph node dissection. Patient is epidural for postoperative analgesia. Patient is complaining of nausea and episodes of hiccups this morning. Pain is adequately controlled. Otherwise blood pressure is elevated this afternoon will 159/124 and heart rate 111 with pulse ox 97% on 2 L oxygen via nasal cannula. Internal medicine service was consulted. Patient has been afebrile. Currently being continued on [place] and Toradol as needed for pain. On D5 half-normal saline at 125 cc/h. Patient is on lisinopril 20 mg every morning for blood pressure as per home regimen. 04/26/2021 Patient is currently lying in the bed comfortably. Awake alert oriented 3. Nausea is much improved. Patient was started on full liquid diet. Blood pressure was elevated yesterday with SBP up to 190s. Patient was given a dose of IV Lopressor and extra dose of lisinopril was given. There was also concern about STEMI and was seen by cardiology. No evidence of STEMI as per cardiology. No complaints of chest pain or shortness of breath. Patient is able to ambulate in the hallway. Abdominal x-ray showed multiple prominent 8 field small bowel loops with air- fluid levels. Correlate for small bowel obstruction. Patient is able to pass flatness and no bowel movement today. No complaints of worsening abdominal pain. 04/27/2021 Patient did have nausea vomiting episodes of vomiting. Patient continues to have nausea. Otherwise patient is able to pass flatus. Did have a small bowel movement at this afternoon. Patient is able to ambulate in the hallway. Denies any complaints of chest pain. No abdominal pain. Pain is controlled. Patient has been afebrile. Encouraged with incentive spirometry and ambulation. If the patient continues to have nausea and vomiting tonight, patient will be placed on NG tube and nothing by mouth until symptomatic improvement. Consider general surgery evaluation. Blood pressure is controlled otherwise. 04/28/2021 Patient is currently having a bowel movement with loose stools. Nausea is much improved. Patient is currently nothing by mouth. No complaints of chest pain or abdominal pain. No complaints shortness of breath. Patient is able to ambulate. Continued on IV hydration with D5 normal saline. Patient will be started on oral diet once nausea improves. Bowel obstruction has resolved. Laboratory data showed WBC 2.8 hemoglobin 12.1 and platelets 174 Sodium 137 potassium 3.9 chloride 106 bicarb is 25 BUN 20 and creatinine 0.6 and calcium 9.1. Patient has been afebrile. Oxygen saturation 95% on room air. Current medications reviewed. Objective - Vital Signs Vital signs: Vital Signs Temp 99.3 F 04/28/21 20:00 Pulse 80 04/28/21 20:00 Resp 16 04/28/21 20:00 BP 156/88 04/28/21 20:00 Pulse Ox 96 04/28/21 20:00 Intake & Output 04/28/21 04/28/21 04/29/21 06:59 18:59 06:59 Other: Voiding Method Toilet Toilet - Exam PHYSICAL EXAMINATION: Patient is lying in the bed comfortably, no acute distress, awake alert and aubrey ented.. HEENT: Normocephalic. Neck is supple. Pupils reactive. Nostrils clear. Oral cavity is moist. Neck reveals no JVD, carotid bruits, or thyromegaly. CHEST EXAMINATION: Trachea is central. Symmetrical expansion. Bibasilar diminished sounds. No wheezing or rhonchi. Nonlabored breathing.. CARDIAC: Normal S1, S2 with no gallops. No murmurs ABDOMEN: Soft. Bowel sounds present. No organomegaly. No abdominal bruits. Extremities: reveal no edema. No clubbing or cyanosis Neurologically awake, alert, oriented x3 with well-coordinated movements. No focal deficits noted Skin: No rash or skin lesions. Psychiatric: Coperative. Nonsuicidal Musculoskeletal: No joint swelling or deformity. Normal range of motion. - Labs CBC & Chem 7: 04/28/21 07:05 04/28/21 07:05 Labs: Abnormal Lab Results - Last 24 Hours (Table) 04/28/21 04/28/21 Range/Units 07:05 07:05 WBC 2.80 L (4.50-10.00) X 10*3/uL RBC 3.98 L (4.40-5.60) X 10*6/uL Hgb 12.1 L (13.0-17.0) g/dL Hct 35.5 L (39.6-50.0) % Neutrophils # 1.77 L (1.80-7.70) X 10*3/uL Lymphocytes # 0.47 L (0.90-5.00) X 10*3/uL BUN/Creatinine Ratio 33.33 H (12.00-20.00) Ratio Assessment and Plan Assessment: Ileus/ Acute small bowel obstruction. improved. Uncontrolled hypertension possible postoperative N/V and hiccups as well as fluid status. Improved now. Mild hyponatremia 130 S/p retroperitoneal, pelvic lymph node dissection on 04/23/2021 Prostate cancer Hypertension Plan: Patient will be continued on symptomatic management for nausea and vomiting.Patient did have a bowel movement with resolution of small bowel obstruction. Continue with IV hydration with normal saline at 100 cc/h. Patient will be started oral diet with moderate intermittent nausea. Likely tomorrow. Blood pressure is controlled. Continue with lisinopril 20 mg twice daily. Continue with DVT prophylaxis, pain management as per primary team. We will continue to follow closely and further recommendations based on the clinical course. Time with Patient: Greater than 30
[2021-04-29 03:23] VITALS: PULSE 65
[2021-04-29] MEDS: DEXTROSE 5%-0.9% NACL 1,000 ML IV SCH (04:53)
[2021-04-29 08:00] VITALS: BP 154/90; TEMP 98.9
[2021-04-29 08:54] LABS: HCT 35.9 % (39.6-50.0); HGB 12.2 g/dL (13.0-17.0); MCH 30.7 pg (27.0-32.0); MCV 90.2 fL (80.0-97.0); Platelet Count 178 X 10*3/uL (140-440); RBC 3.98 X 10*6/uL (4.40-5.60); RDW 13.3 % (11.5-14.5); WBC 3.21 X 10*3/uL (4.50-10.00)
[2021-04-29] MEDS: LACTATED RINGERS 1,000 ML IV SCH (09:09)
[2021-04-29] MEDS: lisinopriL 20 MG TAB PO SCH (09:10)
[2021-04-29] MEDS: FAMOTIDINE 20 MG/2 ML VIAL IV SCH ×2 (09:10)
[2021-04-29 09:11] LABS: African American GFR (CKD) 122.3 (60.0-200.0); Anion Gap 5.8 mmol/L (4.00-12.00); BUN/Creat Ratio 18.33 Ratio (12.00-20.00); Calcium 9.4 mg/dL (8.7-10.3); Carbon Dioxide 26.2 mmol/L (21.6-31.8); Non-African American GFR(CKD) 105.5 (60.0-200.0); Potassium 3.5 mmol/L (3.5-5.5)
[2021-04-29 11:10] LABS: Basophils # (A) 0.01 X 10*3/uL (0.00-0.10); Basophils % (A) 0.3 %; Eosinophils # (A) 0.15 X 10*3/uL (0.04-0.35); Eosinophils % (A) 4.7 %; Lymphocytes # (A) 0.83 X 10*3/uL (0.90-5.00); Lymphocytes % (A) 25.9 %; Monocytes # (A) 0.53 X 10*3/uL (0.20-1.00); Monocytes % (A) 16.5 %; Neutrophils # (A) 1.67 X 10*3/uL (1.80-7.70)
--- NOTE | 2021-04-29 11:56 | P.PN ---
Subjective Progress Note Date: 04/29/21 Principal diagnosis: POD #6, s/p retroperitoneal and pelvic lymph node dissection The patient is feeling considerably better today. His pickups have almost resolved, and he denies nausea. His last episode of diarrhea was overnight. He is very hungry. He tolerated clear liquids for breakfast without difficulty. Objective - Vital Signs Vital signs: Vital Signs Temp 98.9 F 04/29/21 08:00 Pulse 65 04/29/21 08:00 Resp 16 04/29/21 08:00 BP 154/90 04/29/21 08:00 Pulse Ox 98 04/29/21 08:00 Intake & Output 04/28/21 04/29/21 04/29/21 18:59 06:59 18:59 Other: Voiding Method Toilet Toilet Diaper # Voids 3 - Constitutional General appearance: Present: average body habitus, cooperative, no acute distress - Gastrointestinal Gastrointestinal Comment(s): Soft, non-tender, non-distended. Incision clean, dry, and intact. - Psychiatric Psychiatric: Present: A&O x's 3 - Labs CBC & Chem 7: 04/29/21 05:41 04/29/21 05:41 Labs: Abnormal Lab Results - Last 24 Hours (Table) 04/28/21 04/28/21 04/29/21 Range/Units 07:05 07:05 05:41 WBC 2.80 L 3.21 L (4.50-10.00) X 10*3/uL RBC 3.98 L 3.98 L (4.40-5.60) X 10*6/uL Hgb 12.1 L 12.2 L (13.0-17.0) g/dL Hct 35.5 L 35.9 L (39.6-50.0) % Neutrophils # 1.77 L 1.67 L (1.80-7.70) X 10*3/uL Lymphocytes # 0.47 L 0.83 L (0.90-5.00) X 10*3/uL BUN/Creatinine Ratio 33.33 H (12.00-20.00) Ratio Assessment and Plan (1) Malignant neoplasm of prostate Current Visit: Yes Status: Acute Code(s): C61 - MALIGNANT NEOPLASM OF PROSTATE SNOMED Code(s): 111187598 Plan: The patient's paralytic ileus appears to have resolved. He will be advanced to regular diet, and if he tolerates this he will be discharged home later today if okay with Cardiology and Internal Medicine.
--- NOTE | 2021-05-02 07:19 | CDI ---
Documentation Clarification Form Date: 05/02/2021 07:00:09 AM From: Elenita DonohueMARLENY wallace, CCDS Admit Date: 04/23/2021 10:33:00 AM Patient Name: Partha Blue Visit Number: [id number] Discharge Date: 04/29/2021 02:36:00 PM ATTENTION: The Clinical Documentation Specialists (CDI) and [facility] Coding Staff appreciate your assistance in clarifying documentation. Please respond to the clarification below the line at the bottom and electronically sign. The CDI & [facility] Coding staff will review the response and follow-up if needed. Please note: Queries are made part of the Legal Health Record. If you have any questions, please contact the author of this message via ITS. Dr. Deonte Jalloh: Per the Urology Progress Note on 04/27: "Abdominal X-ray shows air-fluid levels. I believe a postoperative paralytic ileus more likely than small bowel obstruction at this time. The fact he has begun passing flatus suggest return of bowel function." Per the 04/28 Urology Progress Note: "the patient appears to have a resolving paralytic ileus, will remain NPO. IV rate will be increased." Additional clarification is requested regarding the relationship, if any, that exists between the Ileus/SBO and the procedure. Patients Admitting Diagnosis: Prostate Cancer Post-Operative Diagnosis: Prostate Cancer Procedure performed: Retroperitoneal, pelvic lymph node dissection History/Risk Factors: Stress Incontinence. Robotic prostatectomy lymph nodes 12/26/2020. Hypertension, Kidney stones, Colon polyp. Clinical Indicators: The patient was diagnosed with prostate cancer in October/2020, underwent biopsies that identified 01/02 biopsies positive for a G8 cancer. Presented for elective surgery on 04/23. 04/26 Abdominal XR: Clinical correlation recommended for SBO. Patient was treated with IV fluids and IV antiemetics and diet, NGT was not required. Treatment 04/25: IV Reglan, po Thorazine 04/26: Symptomatic management for nausea and Thorazine for Hiccups. IV fluids changed to D5 saline due to Na level & reduced rate to 75 mL hr, started full liquid diet. 04/27: IV Toradol 15 mg q6H, IV Fl 100 mls/hr q10H 04/28: IV Lactated Ringers 500 mls/hr q1Hx1 04/29: Full Liquid Diet advanced to Regular and Discharged. What relationship, if any, exists between the diagnosis of ileus/SBO and the procedure: [ ] Ileus or SBO is a complication of surgical procedure [ ] Ileus or SBO is an expected outcome of the surgical procedure [ ] Ileus or SBO is related to patients co-morbid condition(s), please specify: and is not a complication of the procedure [ ] Ileus or SBO has been ruled out [ ] Other please specify: [ ] Unable to determine (Template Last Revised: October 2020) ileus is common post op outcome MTDD
== END 2021-04-29 14:36 | disposition home or self-care (01) | DRG 707 ==
LOC: 2ORMAIN 10:33 → EDSTATUS 12:00 → 4SSUR 15:35
PROVIDERS: ADMIT Urology; ATTEND Urology
PROC: 07TC0ZZ Resection of Pelvis Lymphatic, Open Approach (ICD-10-PCS; 2021-04-23)
PROC: 07TD0ZZ Resection of Aortic Lymphatic, Open Approach (ICD-10-PCS; principal; 2021-04-23 12:00)
DX: C61 Malignant neoplasm of prostate (principal); K56.7 Ileus, unspecified; K56.609 Unspecified intestinal obstruction, unspecified as to partial versus complete obstruction; E87.1 Hypo-osmolality and hyponatremia; N39.3 Stress incontinence (female) (male); Z87.19 Personal history of other diseases of the digestive system; Z85.46 Personal history of malignant neoplasm of prostate; Z80.8 Family history of malignant neoplasm of other organs or systems; Z87.442 Personal history of urinary calculi; Z96.1 Presence of intraocular lens; Z98.41 Cataract extraction status, right eye; Z98.42 Cataract extraction status, left eye; I10 Essential (primary) hypertension; R06.6 Hiccough; I49.3 Ventricular premature depolarization; R00.8 Other abnormalities of heart beat; I25.10 Atherosclerotic heart disease of native coronary artery without angina pectoris; R11.2 Nausea with vomiting, unspecified
CPT/HCPCS: 36415; 71045; 74018; 80048; 83735; 84484; 85025; 86850; 86900; 86901; 88307; 88341; 88342; 93005

== ENCOUNTER → 2021-05-24 | Outpatient (CLI) | payer BC | END | disposition home or self-care (01) | LOC: LABWHC1 15:56 | PROVIDERS: ATTEND Urology | DX: C61 Malignant neoplasm of prostate (principal) | CPT/HCPCS: 36415; 84153 ==

== ENCOUNTER → 2021-06-17 | Outpatient (CLI) | payer BC | END | disposition home or self-care (01) | LOC: LABWHC1 15:36 | PROVIDERS: ATTEND Urology | DX: C61 Malignant neoplasm of prostate (principal) | CPT/HCPCS: 36415; 84153 ==

== ENCOUNTER → 2021-08-26 | Outpatient (CLI) | payer BC ==
[2021-08-27 01:09] LABS: Testosterone <2.50 ng/mL (86.98-780.10)
== END | disposition home or self-care (01) ==
LOC: LABWHC1 15:58
PROVIDERS: ATTEND Urology
DX: C61 Malignant neoplasm of prostate (principal)
CPT/HCPCS: 36415; 84153; 84403